=== PATIENT | female | born 1995 | race Caucasian/White ===

== ENCOUNTER 2019-03-01 23:23 | Outpatient (CLI) | payer BC, OTHER ==
[2019-03-02 00:10] LABS: APPEARANCE,URINE SLIGHTLY-CLOUDY; BILIRUBIN,URINE NEGATIVE (NEGATIVE); COLOR,URINE YELLOW; GLUCOSE, URINE NEGATIVE (NEGATIVE); KETONES,URINE NEGATIVE (NEGATIVE); LEUKOCYTE ESTERASE,URINE MODERATE (NEGATIVE); NITRITE,URINE NEGATIVE (NEGATIVE); PROTEIN,URINE NEGATIVE (NEGATIVE); URINE SPECIFIC GRAVITY 1.012; UROBILINOGEN,URINE NEGATIVE mg/dL (<2.0)
[2019-03-02 00:32] LABS: URINE AMPHETAMINES SCREEN NEGATIVE; URINE BARBITURATES SCREEN NEGATIVE; URINE BENZODIAZEPINES SCREEN NEGATIVE; URINE COCAINE SCREEN NEGATIVE; URINE METHADONE SCREEN NEGATIVE; URINE PHENCYCLIDINE SCREEN NEGATIVE
[2019-03-02 00:56] LABS: URINE MARIJUANA (THC) SCREEN NEGATIVE
== END 2019-03-02 00:44 | disposition home or self-care (01) ==
LOC: LC 23:23
PROVIDERS: ATTEND Obstetrics & Gynecology
PROC: 4A1HXCZ Monitoring of Products of Conception, Cardiac Rate, External Approach (ICD-10-PCS; principal; 2019-03-01)
DX: O47.02 False labor before 37 completed weeks of gestation, second trimester (principal); Z3A.24 24 weeks gestation of pregnancy
CPT/HCPCS: 80307; 81001

== ENCOUNTER 2019-04-12 20:36 | Outpatient (CLI) | payer BC ==
[2019-04-12 21:24] LABS: BACTERIA (WET MOUNT) 4+ BACTERIA SEEN; EPITHELIALS (WET MOUNT) 4+ EPITHELIALS SEEN; T.VAGINALIS (WET MOUNT) NO TRICHOMONAS SEEN; WBCS (WET MOUNT) 1+ WBCS SEEN; YEAST (WET MOUNT) NO YEAST SEEN
[2019-04-12 21:28] LABS: APPEARANCE,URINE SLIGHTLY-CLOUDY; BILIRUBIN,URINE NEGATIVE (NEGATIVE); COLOR,URINE YELLOW; GLUCOSE, URINE NEGATIVE (NEGATIVE); KETONES,URINE NEGATIVE (NEGATIVE); LEUKOCYTE ESTERASE,URINE TRACE (NEGATIVE); NITRITE,URINE NEGATIVE (NEGATIVE); PROTEIN,URINE NEGATIVE (NEGATIVE); URINE SPECIFIC GRAVITY 1.009; UROBILINOGEN,URINE NEGATIVE mg/dL (<2.0)
[2019-04-12 21:38] LABS: URINE AMPHETAMINES SCREEN NEGATIVE; URINE BARBITURATES SCREEN NEGATIVE; URINE BENZODIAZEPINES SCREEN NEGATIVE; URINE COCAINE SCREEN NEGATIVE; URINE MARIJUANA (THC) SCREEN NEGATIVE; URINE METHADONE SCREEN NEGATIVE; URINE PHENCYCLIDINE SCREEN NEGATIVE
--- NOTE | 2019-04-12 22:38 | RADIOLOGY REPORT (SQ) ---
EXAM DESCRIPTION: [facility]Lex: US LIMITED CLINICAL HISTORY: 23 years Female; cervical length, presentation, fluid TECHNIQUE: Transabdominal obstetrical ultrasound was performed. COMPARISON: None. FINDINGS: Number of fetuses: Single position: Vertex BPD: 7.47 cm, 30 weeks 0 days HC: 27.58 cm, 30 weeks 1 day AC: 26.77 cm, 30 weeks 6 days FL: 6.26 cm, 32 weeks 3 days EFW: 1720 g, 54% HR: 139 BPM Anatomy: Grossly normal on this limited survey exam Amniotic fluid: KELSEY 13.9 cm, adequate Cervix: 3.9 cm long, closed Placenta: Anterior. No previa. IMPRESSION: 1. Single viable IUP. No acute findings. 2. EGA 30 weeks 6 days, EDC 06/15/2019
[2019-04-12] MEDS ORDERED: CEFTRIAXONE INJ 1000 MG VIAL IM ONE (22:40)
[2019-04-12] MEDS ORDERED: LIDOCAINE 1% INJ-PF (10 MG/ML) 30 ML SDV INFIL ONE (22:40)
[2019-04-12] MEDS ORDERED: CEFTRIAXONE INJ 1000 MG VIAL ONE (22:44)
[2019-04-12] MEDS ORDERED: LIDOCAINE 1% INJ-PF (10 MG/ML) 30 ML SDV ONE (22:44)
[2019-04-12 22:49] LABS: CHLAM PCR NOT DETECTED (NOT DETECT)
== END 2019-04-12 23:04 | disposition home or self-care (01) ==
LOC: LC 20:36
PROVIDERS: ATTEND Student in an Organized Health Care Education/Training Program
PROC: 4A1HXCZ Monitoring of Products of Conception, Cardiac Rate, External Approach (ICD-10-PCS; principal; 2019-04-12)
DX: O23.43 Unspecified infection of urinary tract in pregnancy, third trimester (principal); Z3A.30 30 weeks gestation of pregnancy
CPT/HCPCS: 59899; 94760; 87086; 87210; 81001; 80307; 87491; 87591; 76815; J3490; J0696

== ENCOUNTER 2019-05-06 15:53 | Outpatient (CLI) | payer BC ==
[2019-05-06 16:42] LABS: AMORPHOUS SEDIMENT,URINE TRACE /HPF; APPEARANCE,URINE CLOUDY; BILIRUBIN,URINE NEGATIVE (NEGATIVE); COLOR,URINE YELLOW; GLUCOSE, URINE NEGATIVE (NEGATIVE); KETONES,URINE NEGATIVE (NEGATIVE); LEUKOCYTE ESTERASE,URINE TRACE (NEGATIVE); NITRITE,URINE NEGATIVE (NEGATIVE); PROTEIN,URINE NEGATIVE (NEGATIVE); URINE SPECIFIC GRAVITY 1.012
[2019-05-06 16:44] LABS: BACTERIA (WET MOUNT) 4+ BACTERIA SEEN; EPITHELIALS (WET MOUNT) 4+ EPITHELIALS SEEN; RBCS (WET MOUNT) NO RBCS SEEN; T.VAGINALIS (WET MOUNT) NO TRICHOMONAS SEEN; WBCS (WET MOUNT) 3+ WBCS SEEN; YEAST (WET MOUNT) NO YEAST SEEN
[2019-05-06] MEDS ORDERED: ACETAMINOPHEN 325 MG TABLET PO PRN (17:13)
[2019-05-06 17:18] LABS: URINE AMPHETAMINES SCREEN NEGATIVE; URINE BARBITURATES SCREEN NEGATIVE; URINE BENZODIAZEPINES SCREEN NEGATIVE; URINE COCAINE SCREEN NEGATIVE; URINE MARIJUANA (THC) SCREEN NEGATIVE; URINE METHADONE SCREEN NEGATIVE; URINE PHENCYCLIDINE SCREEN NEGATIVE
[2019-05-06] MEDS ORDERED: RINGERS SOLUTION,LACTATED 1,000 ML IV ONE (17:24)
[2019-05-06] MEDS ORDERED: ONDANSETRON HCL INJ/PF 4 MG/2 ML SDV IV PRN (17:25)
--- NOTE | 2019-05-06 18:00 | Non Stress Test Report ---
Non Stress Test Datetime Report Generated by CPN: 05/06/2019 17:59 DEMOGRAPHIC EGA NST: 34.1 INDICATION Indication for Study (NST) Other: Labor Check VITAL SIGNS Temperature - NST: 97.9 Pulse - NST: 75 RESP - NST: 15 NBPSYS NST: 128 NBPDIA NST: 71 MONITORING Monitor Explained: Monitor Explained; Test Explained; Patient Verbalized Understanding Time on Monitor: 05/06/2019 16:30 Time off Monitor: 05/06/2019 17:10 NST Duration: 40 NST INTERVENTIONS NST Interventions: PO Hydration Physician Notified NST: A Michaels CNM BABY A: [id number] BABY A Movement : Present Contraction Frequency : rare FHR Baseline : 130 Accelerations : 15X15 Decelerations : None Variability : Moderate 6-25bpm NST Review: Meets Criteria for Reactive NST NST Review and Verified By : BL ROULUND, RN NST Results: Reactive NST COMMENTS NST Comments: CNM on unit reviewing FHT strip NST REPORT Report Trigger: Send Report
[2019-05-06 18:08] LABS: CHLAM PCR NOT DETECTED (NOT DETECT)
--- NOTE | 2019-05-06 19:38 | RADIOLOGY REPORT (SQ) ---
EXAM DESCRIPTION: U/S ABDOMEN LIMITED W/O DOP COMPLETED DATE/TIME: 05/06/2019 7:20 pm REASON FOR STUDY: RUQ abd pain, evaluate gall bladder COMPARISON: None. TECHNIQUE: Dynamic and static grayscale images acquired of the abdomen and recorded on PACS. Additio nal selected color Doppler and spectral images recorded. LIMITATIONS: Bowel gas. FINDINGS: PANCREAS: Obscured by bowel gas. LIVER: No masses. Echotexture normal. LIVER VASCULATURE: Normal directional flow of the main portal vein and hepatic veins. GALLBLADDER: Multiple small gallstones. Normal wall thickness, 2.5. No pericholecystic fluid. ULTRASOUND-DETECTED REYNOLDS'S SIGN: Negative. INTRAHEPATIC DUCTS AND COMMON DUCT: CBD and intrahepatic ducts normal caliber. No filling defects. INFERIOR VENA CAVA: Obscured by bowel gas. AORTA: Obscured by bowel gas. RIGHT KIDNEY: Normal size. Normal echogenicity. No solid or suspicious masses. No hydronephros is. No calcifications. PERITONEAL AND RIGHT PLEURAL SPACE: No ascites or effusions. OTHER: heart rate 137 beats per minute. IMPRESSION: Multiple small gallstones. Normal wall thickness, 2.5. No pericholecystic fluid. TECHNICAL DOCUMENTATION: JOB ID: [id number] [place]-72 2010 [employer]- All Rights Reserved Reading location - IP/workstation name: [employer]
[2019-05-06 20:14] LABS: ABSOLUTE EOSINOPHILS # (AUTO) 0.1 10^3/uL (0.0-0.6); ABSOLUTE LYMPHOCYTES (AUTO) 1.4 10^3/uL (0.5-4.7); ABSOLUTE MONOCYTES (AUTO) 0.6 10^3/uL (0.1-1.4); ABSOLUTE NEUT (AUTO) 8.7 10^3/uL (1.7-8.2); BASOPHILS % (AUTO) 0.4 % (0-2); EOSINOPHILS % (AUTO) 0.6 % (0-6); HEMATOCRIT 37.9 % (36.0-47.0); HEMOGLOBIN 13.2 g/dL (12.0-15.5); LYMPHOCYTES % (AUTO) 13.2 % (13-45); MEAN CORPUSCULAR HEMOGLOBIN 31.6 pg (27.0-33.4); MEAN CORPUSCULAR HGB CONC 34.8 g/dL (32.0-36.0); MEAN CORPUSCULAR VOLUME 91 fl (80-97); MONOCYTES % (AUTO) 5.9 % (3-13); PLATELET COUNT 359 10^3/uL (150-450); RED BLOOD COUNT 4.17 10^6/uL (3.72-5.28); RED CELL DISTRIBUTION WIDTH 12.8 % (11.5-14.0); SEGMENTED NEUTROPHILS % (AUTO) 79.9 % (42-78); TOTAL CELLS COUNTED % (AUTO) 100 %; WHITE BLOOD COUNT 10.9 10^3/uL (4.0-10.5)
[2019-05-06 20:35] LABS: ALBUMIN 3.6 g/dL (3.5-5.0); ALKALINE PHOSPHATASE 191 U/L (38-126); ANION GAP 9 (5-19); ASPARTATE AMINO TRANSFERASE 117 U/L (14-36); BILIRUBIN,DIRECT 0.7 mg/dL (0.0-0.4); BILIRUBIN,TOTAL 1.5 mg/dL (0.2-1.3); BLOOD UREA NITROGEN 5 mg/dL (7-20); CALCIUM 9.7 mg/dL (8.4-10.2); CARBON DIOXIDE 24 mmol/L (22-30); CHLORIDE 103 mmol/L (98-107); GLUCOSE 112 mg/dL (75-110); POTASSIUM 4.3 mmol/L (3.6-5.0)
[2019-05-06 20:40] LABS: AMYLASE 1237 U/L (30-110)
== END 2019-05-06 20:39 | disposition home or self-care (01) ==
LOC: LC 15:53
PROVIDERS: ATTEND Obstetrics & Gynecology
PROC: 4A1HXCZ Monitoring of Products of Conception, Cardiac Rate, External Approach (ICD-10-PCS; principal; 2019-05-06)
DX: R10.9 Unspecified abdominal pain (principal); R10.11 Right upper quadrant pain; O26.893 Other specified pregnancy related conditions, third trimester; M54.9 Dorsalgia, unspecified; R35.0 Frequency of micturition; O21.9 Vomiting of pregnancy, unspecified; Z3A.34 34 weeks gestation of pregnancy
CPT/HCPCS: 36415; 59025; 76705; 80053; 80307; 81001; 82150; 83690; 84112; 85025; 87086; 87210; 87491; 87591

== ENCOUNTER 2019-05-11 21:48 | Emergency (ER) | payer BC ==
[2019-05-11] MEDS ORDERED: PROMETHAZINE HCL 25 MG TABLET PO ONE (22:16)
--- NOTE | 2019-05-11 22:19 | ER Document Report ---
ED Medical Screen (RME) - General Stated Complaint: ABDOMINAL PAINS Time Seen by Provider: 05/11/19 22:14 Primary Care Provider: DOLORES WELSH MD [Primary Care Provider] - Follow up as needed Mode of Arrival: Ambulatory Information source: Patient Notes: This 23-year-old female approximately 35 weeks due May 20 first presents emergency department with right upper quad abdominal pain of vomiting. Reports she is been diagnosed with gallstones last week. She has an appointment with the surgeon in May. She reports she started having some nausea vomiting at around 1500 today. Also complains of mid back pain. [place] pain with void. Reports more vaginal discharge the normal. Right upper quad tender to palpate I have greeted and performed a rapid initial assessment of this patient. A comprehensive ED assessment and evaluation of the patient, analysis of test results and completion of the medical decision making process will be conducted by additional ED providers. Dictation of this chart was performed using voice recognition software; therefore, there may be some unintended grammatical errors. TRAVEL OUTSIDE OF THE [place] IN LAST 30 DAYS: No - Related Data Allergies/Adverse Reactions: No Known Allergies Allergy (Verified 05/06/19 16:44) Physical Exam - Vital signs Vitals: Temp Pulse Resp BP Pulse Ox 97.4 F 70 18 146/86 H 99 05/11/19 21:53 05/11/19 21:53 05/11/19 21:53 05/11/19 21:53 05/11/19 21:53 Course - Vital Signs Vital signs: Temp Pulse Resp BP Pulse Ox 97.4 F 70 18 146/86 H 99 05/11/19 21:53 05/11/19 21:53 05/11/19 21:53 05/11/19 21:53 05/11/19 21:53 Doctor's Discharge - Discharge Referrals: DOLORES WELSH MD [Primary Care Provider] - Follow up as needed
[2019-05-11] MEDS ORDERED: MORPHINE SULFATE 10 MG/ML INJ IV ONE (22:47)
[2019-05-11] MEDS ORDERED: NORMAL SALINE 1000 ML 1,000 ML IV ONE (22:47)
[2019-05-11] MEDS ORDERED: METOCLOPRAMIDE HCL INJ/PF 10 MG/2 ML SDV IV ONE (22:47)
--- NOTE | 2019-05-11 22:50 | ER Document Report ---
ED GI/ - General Chief Complaint: Abdominal Pain Stated Complaint: ABDOMINAL PAINS Time Seen by Provider: 05/11/19 22:14 Mode of Arrival: Ambulatory Notes: Patient is a 23-year-old female, G2,P1 at 35 weeks gestation, that comes emergency department for chief complaint of sharp pain in the right upper quadrant and 2 episodes of vomiting today. She was told that she has gallstones via ultrasound about a week ago. Pain does radiate around the top of the abdomen and towards the back. She denies vaginal bleeding, she states she is still feeling baby moving. No other complaints at this time. TRAVEL OUTSIDE OF THE [place] IN LAST 30 DAYS: No - Related Data Allergies/Adverse Reactions: No Known Allergies Allergy (Verified 05/06/19 16:44) Home Medications: . tums Past Medical History - General Information source: Patient - Social History Smoking Status: Never Smoker Frequency of alcohol use: None Drug Abuse: None Lives with: Family Family History: Reviewed & Not Pertinent Patient has suicidal ideation: No Patient has homicidal ideation: No Surgical Hx: Negative - Immunizations Immunizations up to date: Yes Hx Diphtheria, Pertussis, Tetanus Vaccination: Yes Review of Systems - Review of Systems Constitutional: No symptoms reported EENT: No symptoms reported Cardiovascular: No symptoms reported Respiratory: No symptoms reported Gastrointestinal: See HPI Genitourinary: No symptoms reported Female Genitourinary: No symptoms reported Musculoskeletal: No symptoms reported Skin: No symptoms reported Hematologic/Lymphatic: No symptoms reported Neurological/Psychological: No symptoms reported Physical Exam - Vital signs Vitals: Temp Pulse Resp BP Pulse Ox 97.4 F 70 18 146/86 H 99 05/11/19 21:53 05/11/19 21:53 05/11/19 21:53 05/11/19 21:53 05/11/19 21:53 - Notes Notes: GENERAL: Alert, interacts well. No acute distress. HEAD: Normocephalic, atraumatic. EYES: Pupils equal, round, and reactive to light. Extraocular movements intact. ENT: Oral mucosa moist, tongue midline. Oropharynx unremarkable. Airway patent. NECK: Full range of motion. Supple. Trachea midline. LUNGS: Clear to auscultation bilaterally, no wheezes, rales, or rhonchi. No respiratory distress. HEART: Regular rate and rhythm. No murmur ABDOMEN: Right upper quadrant tender with some wincing, remaining abdomen is completely benign. Gravid abdomen. EXTREMITIES: Moves all 4 extremities spontaneously. No edema, normal radial and dorsalis pedis pulses bilaterally. No cyanosis. BACK: no cervical, thoracic, lumbar midline tenderness. No saddle anesthesia, normal distal neurovascular exam. Moves all extremities in full range of motion. NEUROLOGICAL: Alert and oriented x3. Normal speech. Cranial nerves II through XII grossly intact. PSYCH: Normal affect, normal mood. SKIN: Warm, dry, normal turgor. No rashes or lesions noted. Course - Re-evaluation Re-evalutation: On reevaluation patient no longer has any pain, she has not had return of symptoms, she is able to tolerate p.o. without difficulty. CBC shows mild leukocytosis, chemistry nonspecific, lipase unremarkable, bilirubin is not significantly elevated. Ultrasound shows cholelithiasis without pericholecystic fluid or obstruction. No acute findings. Patient with no symptoms in regards to the , feeling the baby move, has good heart tones, has no bleeding or lower abdominal pain/cramping. I discussed options with patient, I did discuss talking with surgery, patient declined, patient states she already has a follow-up with the surgical clinic scheduled and she will follow-up with that using precautions. She states she return if she worsens, this was discussed in detail. Patient and family state appreciation and agreement. Stable at time of discharge. - Vital Signs Vital signs: Temp Pulse Resp BP Pulse Ox 97.7 F 69 14 116/74 100 05/12/19 01:13 05/12/19 01:13 05/12/19 01:13 05/12/19 01:13 05/12/19 01:13 - Laboratory Result Diagrams: 05/11/19 23:15 05/11/19 23:15 Laboratory results interpreted by me: 05/11/19 05/11/19 05/11/19 23:15 23:15 23:15 WBC 12.2 H Absolute Neuts (auto) 9.2 H BUN 4 L Calcium 10.7 H Direct Bilirubin 0.5 H AST 84 H Alkaline Phosphatase 217 H Urine Urobilinogen 2.0 H Ur Leukocyte Esterase TRACE H Discharge - Discharge Clinical Impression: Right upper quadrant pain Vomiting Qualifiers: Vomiting type: unspecified Vomiting Intractability: non-intractable Nausea presence: with nausea Qualified Code(s): R11.2 - Nausea with vomiting, unspecified Cholelithiasis Qualifiers: Cholelithiasis location: gallbladder Cholecystitis presence: without cholecystitis Biliary obstruction: without biliary obstruction Qualified Code(s): K80.20 - Calculus of gallbladder without cholecystitis without obstruction Condition: Stable Disposition: HOME, SELF-CARE Additional Instructions: There is no sign of obstruction or infection at this time. Continue your restriction diet, take medication as prescribed if needed, follow-up with your surgical clinic appointment. Follow-up with [facility]. Return for any concerning symptoms including returned or worsening pain, fever, uncontrolled vomiting, or any other concerning symptoms. Prescriptions: Metoclopramide HCl [Reglan] 5 mg PO ASDIR PRN #30 tablet PRN Reason:
[2019-05-11 23:29] LABS: ABSOLUTE EOSINOPHILS # (AUTO) 0.1 10^3/uL (0.0-0.6); ABSOLUTE LYMPHOCYTES (AUTO) 1.7 10^3/uL (0.5-4.7); ABSOLUTE MONOCYTES (AUTO) 1.2 10^3/uL (0.1-1.4); ABSOLUTE NEUT (AUTO) 9.2 10^3/uL (1.7-8.2); BASOPHILS % (AUTO) 0.2 % (0-2); EOSINOPHILS % (AUTO) 0.7 % (0-6); HEMATOCRIT 39.3 % (36.0-47.0); HEMOGLOBIN 13.4 g/dL (12.0-15.5); LYMPHOCYTES % (AUTO) 14.3 % (13-45); MEAN CORPUSCULAR HGB CONC 34.2 g/dL (32.0-36.0); MEAN CORPUSCULAR VOLUME 91 fl (80-97); MONOCYTES % (AUTO) 9.4 % (3-13); PLATELET COUNT 372 10^3/uL (150-450); RED BLOOD COUNT 4.33 10^6/uL (3.72-5.28); RED CELL DISTRIBUTION WIDTH 12.8 % (11.5-14.0); SEGMENTED NEUTROPHILS % (AUTO) 75.4 % (42-78); TOTAL CELLS COUNTED % (AUTO) 100 %; WHITE BLOOD COUNT 12.2 10^3/uL (4.0-10.5)
[2019-05-11 23:43] LABS: APPEARANCE,URINE CLOUDY; BILIRUBIN,URINE NEGATIVE (NEGATIVE); COLOR,URINE YELLOW; GLUCOSE, URINE NEGATIVE (NEGATIVE); KETONES,URINE NEGATIVE (NEGATIVE); LEUKOCYTE ESTERASE,URINE TRACE (NEGATIVE); NITRITE,URINE NEGATIVE (NEGATIVE); PROTEIN,URINE NEGATIVE (NEGATIVE); URINE SPECIFIC GRAVITY 1.013
[2019-05-11 23:49] LABS: BLOOD UREA NITROGEN 4 mg/dL (7-20); CALCIUM 10.7 mg/dL (8.4-10.2); CARBON DIOXIDE 27 mmol/L (22-30); CHLORIDE 101 mmol/L (98-107); GLUCOSE 95 mg/dL (75-110); POTASSIUM 3.8 mmol/L (3.6-5.0)
[2019-05-11 23:50] LABS: ALBUMIN 3.8 g/dL (3.5-5.0); ALKALINE PHOSPHATASE 217 U/L (38-126); ANION GAP 9 (5-19); ASPARTATE AMINO TRANSFERASE 84 U/L (14-36); BILIRUBIN,DIRECT 0.5 mg/dL (0.0-0.4); BILIRUBIN,TOTAL 1.1 mg/dL (0.2-1.3); TOTAL PROTEIN 7.4 g/dL (6.3-8.2)
--- NOTE | 2019-05-12 00:30 | RADIOLOGY REPORT (SQ) ---
EXAM DESCRIPTION: US ABDOMEN LIMITED COMPLETED DATE/TME: 05/11/2019 22:47 CLINICAL HISTORY: 23 years Female, RUQ pain, vomiting Comparison: None. LIMITATIONS: None. FINDINGS: Cholelithiasis, 0.3 cm gallbladder wall thickening, negative sonographic Flores's test, mild hepatic steatosis, a 0.4-cm diameter common bile duct, no intrahepatic ductal dilation, hepatopetal patent flow of the portal vein, 12.2-cm right kidney, partially obscured pancreas, visualized vasculature/abdominal aorta, and no significant ascites appear otherwise unremarkable. IMPRESSION: No acute findings. Cholelithiasis. Mild hepatic steatosis.
[2019-05-12] MEDS ORDERED: HYDROCODONE/ACETAMINOPHEN 5-325 MG (6 TAB/ER DISP) PO PRN (00:49)
[2019-05-12 01:15] VITALS: BP 116/74
== END 2019-05-12 01:15 | disposition home or self-care (01) ==
LOC: ER 21:48
DX: O99.613 Diseases of the digestive system complicating pregnancy, third trimester (principal); R10.11 Right upper quadrant pain; R11.10 Vomiting, unspecified; Z3A.35 35 weeks gestation of pregnancy
CPT/HCPCS: 36415; 83690; 85025; 80053; 81001; 76705; J2765; J2270; J7030; 96361; 96374; 96375; 99284

== ENCOUNTER → 2019-06-12 | Outpatient (CLI) | payer BC | LOC: LAB 17:20 | PROVIDERS: ATTEND Midwife | DX: L29.9 Pruritus, unspecified (principal) | CPT/HCPCS: 36415; 82239 ==

== ENCOUNTER 2019-06-18 06:15 | Outpatient (CLI) | payer BC ==
[2019-06-18 06:43] LABS: APPEARANCE,URINE CLOUDY; BILIRUBIN,URINE SMALL (NEGATIVE); COLOR,URINE AMBER; GLUCOSE, URINE NEGATIVE (NEGATIVE); KETONES,URINE NEGATIVE (NEGATIVE); LEUKOCYTE ESTERASE,URINE TRACE (NEGATIVE); NITRITE,URINE NEGATIVE (NEGATIVE); PROTEIN,URINE 100 mg/dL (NEGATIVE); URINE SPECIFIC GRAVITY 1.028
[2019-06-18] MEDS ORDERED: MAG HYDROX/AL HYDROX/SIMETH SUSP 30 ML UDCUP ONE (07:56)
[2019-06-18] MEDS ORDERED: RINGERS SOLUTION,LACTATED 1,000 ML IV ONE (08:05)
[2019-06-18 08:12] LABS: URINE AMPHETAMINES SCREEN NEGATIVE; URINE BARBITURATES SCREEN NEGATIVE; URINE BENZODIAZEPINES SCREEN NEGATIVE; URINE COCAINE SCREEN NEGATIVE; URINE MARIJUANA (THC) SCREEN NEGATIVE; URINE METHADONE SCREEN NEGATIVE; URINE PHENCYCLIDINE SCREEN NEGATIVE
--- NOTE | 2019-06-18 10:27 | Non Stress Test Report ---
Non Stress Test Datetime Report Generated by CPN: 06/18/2019 10:27 DEMOGRAPHIC EGA NST: 40.2 INDICATION Indication for Study (NST) Other: LC- not in labor VITAL SIGNS Temperature - NST: 97.5 Pulse - NST: 69 RESP - NST: 16 NBPSYS NST: 131 NBPDIA NST: 81 MONITORING Monitor Explained: Monitor Explained; Test Explained; Patient Verbalized Understanding Time on Monitor: 06/18/2019 09:46 Time off Monitor: 06/18/2019 10:10 NST Duration: 24 NST INTERVENTIONS NST Interventions: PO Hydration; IV Fluids Physician Notified NST: Dr Bolton BABY A: [id number] BABY A Movement : Present Contraction Frequency : none FHR Baseline : 120 Accelerations : 15X15 Decelerations : None Variability : Moderate 6-25bpm NST Review: Meets Criteria for Reactive NST NST Review and Verified By : Neeru Ziegler, RN NST Results: Reactive NST COMMENTS NST Comments: MD on unit reviewing FHT strip NST REPORT Report Trigger: Send Report
== END 2019-06-18 10:17 | disposition home or self-care (01) ==
LOC: LC 06:15
PROVIDERS: ATTEND Student in an Organized Health Care Education/Training Program
PROC: 4A1HXCZ Monitoring of Products of Conception, Cardiac Rate, External Approach (ICD-10-PCS; principal; 2019-06-18)
DX: O48.0 Post-term pregnancy (principal); O47.1 False labor at or after 37 completed weeks of gestation; Z3A.40 40 weeks gestation of pregnancy
CPT/HCPCS: 59025; 80307; 81005; 84112

== ENCOUNTER 2019-06-24 02:59 | Inpatient (IN) | payer BC ==
[2019-06-24 03:49] LABS: ABSOLUTE BASOPHILS # (AUTO) 0.1 10^3/uL (0.0-0.2); ABSOLUTE EOSINOPHILS # (AUTO) 0.1 10^3/uL (0.0-0.6); ABSOLUTE LYMPHOCYTES (AUTO) 2.3 10^3/uL (0.5-4.7); ABSOLUTE MONOCYTES (AUTO) 0.8 10^3/uL (0.1-1.4); ABSOLUTE NEUT (AUTO) 7.4 10^3/uL (1.7-8.2); BASOPHILS % (AUTO) 0.6 % (0-2); EOSINOPHILS % (AUTO) 1.3 % (0-6); HEMATOCRIT 38.6 % (36.0-47.0); HEMOGLOBIN 13.4 g/dL (12.0-15.5); LYMPHOCYTES % (AUTO) 21.4 % (13-45); MEAN CORPUSCULAR HEMOGLOBIN 30.9 pg (27.0-33.4); MEAN CORPUSCULAR HGB CONC 34.8 g/dL (32.0-36.0); MEAN CORPUSCULAR VOLUME 89 fl (80-97); MONOCYTES % (AUTO) 7.1 % (3-13); PLATELET COUNT 364 10^3/uL (150-450); RED BLOOD COUNT 4.35 10^6/uL (3.72-5.28); RED CELL DISTRIBUTION WIDTH 13.4 % (11.5-14.0); SEGMENTED NEUTROPHILS % (AUTO) 69.6 % (42-78); TOTAL CELLS COUNTED % (AUTO) 100 %; WHITE BLOOD COUNT 10.7 10^3/uL (4.0-10.5)
[2019-06-24 04:14] LABS: APPEARANCE,URINE SLIGHTLY-CLOUDY; BILIRUBIN,URINE NEGATIVE (NEGATIVE); COLOR,URINE YELLOW; GLUCOSE, URINE NEGATIVE (NEGATIVE); KETONES,URINE NEGATIVE (NEGATIVE); LEUKOCYTE ESTERASE,URINE SMALL (NEGATIVE); NITRITE,URINE NEGATIVE (NEGATIVE); PROTEIN,URINE NEGATIVE (NEGATIVE); URINE SPECIFIC GRAVITY 1.012; UROBILINOGEN,URINE NEGATIVE mg/dL (<2.0)
[2019-06-24] MEDS ORDERED: RINGERS SOLUTION,LACTATED 300 ML IV ONE (04:20)
[2019-06-24] MEDS ORDERED: OXYTOCIN/NORMAL SALINE 20 UNIT/1,000 ML RTUINJ IV PRN ×2 (04:20→16:14)
[2019-06-24] MEDS ORDERED: DINOPROSTONE 10 MG VAGINAL INSERT.SR PV PRN (04:20)
[2019-06-24] MEDS ORDERED: MISOPROSTOL 0.2 MG TABLET ONE (04:26)
[2019-06-24] MEDS ORDERED: OXYTOCIN 10 UNIT/ML VIAL ONE (04:26)
[2019-06-24] MEDS ORDERED: LIDOCAINE 1% INJ-PF (10 MG/ML) 30 ML SDV ONE (04:26)
[2019-06-24] MEDS ORDERED: OXYTOCIN/NORMAL SALINE 20 UNIT/1,000 ML RTUINJ ONE (04:26)
[2019-06-24 04:29] LABS: URINE AMPHETAMINES SCREEN NEGATIVE; URINE BARBITURATES SCREEN NEGATIVE; URINE BENZODIAZEPINES SCREEN NEGATIVE; URINE COCAINE SCREEN NEGATIVE; URINE MARIJUANA (THC) SCREEN NEGATIVE; URINE METHADONE SCREEN NEGATIVE; URINE PHENCYCLIDINE SCREEN NEGATIVE
[2019-06-24] MEDS: RINGERS SOLUTION,LACTATED 1,000 ML IV PRN ×5 (06:04→14:56)
--- NOTE | 2019-06-24 09:14 | Admission Physical ---
Datetime Report Generated by [facility]: 06/24/2019 09:14 CURRENT ADMISSION Hx Assessment: The History has been Reviewed and is Current Chief Complaint: Scheduled Induction of Labor (Annotations: Data stored by [facility] on behalf of user) Indication for Induction: Post Dates Admit Impression : Term, Intrauterine Admit Plan: Admit to Unit; Initiate Labor Protocol; Initiate Labor Induction Protocol ALLERGIES Medication Allergies: No Medication Allergies: No Known Allergies (05/06/2019) Latex: No Latex Allergies Food Allergies: None Environmental Allergies: None OBSTETRICAL HISTORY EDC: 06/16/2019 00:00 : 2 Para: 1 Term: 1 : 0 SAB: 0 IAB: 0 Livin Gestational Diabetes: No Rh Sensitization: No Incompetent Cervix: No LIBERTY: No Infertility: No ART Treatment: No Uterine Anomaly: No IUGR: No Hx Previous C/S: No Macrosomia: No Hx Loss/Stillborn: No PIH: No Hx : No Placenta Previa/Abruption: No Depression/PP Depression: Yes PTL/PROM: Yes Post Hemorrhage: No Current Procedures: Ultrasound Obstetrical History Comments: G1- 2010, , depression, PTL, 41.3 weeks G2- Current SEE RECORDS Alcohol: No Marijuana : No Cocaine: No Other Illicit Drugs: No Cigarettes: Never Smoker. 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: No Heart Disease: No Hosp/Surgery: No Autoimmune Disorder: No Anesthetic Complications: No Kidney Disease: Yes Abnormal Pap Smear: No Neuro/Epilepsy: No Psychiatric Disorders: No Other Medical Diseases: No Hepatitis/Liver Disease: No Significant Family History: No Varicosities/Phlebitis: No Trauma/Violence : No Thyroid Dysfunction: No Medical History Comments: Childbirth, Axillary nipple removed, kidney disease- sponge kidney INFECTIOUS HISTORY Gonorrhea: No Genital Herpes: No Chlamydia: Yes Tuberculosis: No Syphilis: No Hepatitis: No HIV/AIDS Exposure: No Rash or Viral Illness: No HPV: No Infectious History Comments: chlamydia PHYSICAL EXAM General: Normal Neurologic: Normal Thyroid: Deferred Heart: Normal Lungs: Normal Breast: Normal Back: Normal Abdomen: Normal Genitourinary Exam: Normal Extremities: Normal DTRs: Normal Pelvic Type: Adequate Physical Exam Comments: pelvis proven to 7lbs 2oz Vital Signs: Reviewed; Within Normal Limits FETUS A EGA: 41.1 Monitoring: External US Variability: Moderate 6-25bpm Decelerations: None FHR Category: Category I Presentation: Vertex Admit Comment: 23yo @ 41w1d into L_D for IOL secondary to post term . Pt is O pos, GBS neg and RI. Pt was a transferred in @ 21w from [place] with significant hx of chlamydia in 2010, PPD, kidney disease (sponge kidney) and positive gallstones with elevated amylase,lypase and AST at 34w with this with pending scheduled f/u with general surgery on 06/30. Plan is to start pitocin induction per protocol. Report received from Dr. Carbajal, Dr. Mathews is the OB internet consultant today and aware of poc. PLANS FOR LABOR AND DELIVERY Labor and Delivery: None Feeding Preference: Formula Circumcision: N/A INFORMED CONSENT Assignment: Anisha Mathews MD Signature: with User ID: Shelli : with User ID: Shelli
[2019-06-24] MEDS ORDERED: FENTANYL CITRATE INJ/PF 100 MCG/2 ML AMPUL ONE (10:37)
[2019-06-24] MEDS ORDERED: PHENYLEPHRINE HCL INJ/PF 10 MG/1 ML SDV ONE (10:37)
[2019-06-24] MEDS ORDERED: EPHEDRINE SULFATE INJ 50 MG/1 ML AMPULE ONE (10:37)
[2019-06-24] MEDS ORDERED: FENTANYL/BUPIVACAINE/NS/PF 300 MCG/150 ML RTUINJ EPI ONE (10:37)
[2019-06-24] MEDS ORDERED: BUPIVACAINE HCL 0.25 % INJ/PF (2.5 MG/1 ML) 30 ML VIAL ONE (10:38)
--- NOTE | 2019-06-24 12:05 | Warning Signs in Babies ---
VOD Warning Signs Datetime Report Generated by [facility]: 06/24/2019 12:05 VOD#[id number] -Warning Signs in Babies: Viewed with Parent(s)/Family (06/24/2019 12:04:Owen Bravo RN)
[2019-06-24] MEDS ORDERED: MAGNESIUM HYDROXIDE SUSP 30 ML UDCUP PO PRN (16:14)
[2019-06-24] MEDS ORDERED: BENZOCAINE/MENTHOL AEROSOL SPRAY 56 ML TOP PRN (16:14)
[2019-06-24] MEDS ORDERED: PROMETHAZINE HCL 25 MG TABLET PO PRN (16:14)
[2019-06-24] MEDS ORDERED: NA PHOS,M-B/NA PHOS,DI-BA (ADULT) 133 ML ENEMA PR PRN (16:14)
[2019-06-24] MEDS ORDERED: DIPH/PERTUSS(ACELL)/TETANUS VAC/PF 0.5 ML SYR (>=10YO) IM PRN (16:14)
[2019-06-24] MEDS ORDERED: DIPHENHYDRAMINE HCL 25 MG CAPSULE PO PRN (16:14)
[2019-06-24] MEDS ORDERED: MEASLES,MUMPS&RUBELLA VACC/PF 0.5 ML VIAL SUBCUT PRN (16:14)
[2019-06-24] MEDS ORDERED: GLYCERIN/WITCH HAZEL LEAF 1 EACH MED..WIPE TP PRN (16:14)
[2019-06-24] MEDS ORDERED: PSEUDOEPHEDRINE HCL 30 MG TABLET PO PRN (16:14)
[2019-06-24] MEDS ORDERED: DIBUCAINE 1% OINTMENT 28 GM TP PRN (16:14)
[2019-06-24] MEDS ORDERED: PROMETHAZINE HCL 25 MG SUPP.RECT PR PRN (16:14)
[2019-06-24] MEDS ORDERED: ACETAMINOPHEN 325 MG TABLET PO PRN (16:14)
[2019-06-24] MEDS ORDERED: PROMETHAZINE HCL INJ 25 MG/1 ML VIAL IV PRN (16:14)
[2019-06-24] MEDS ORDERED: IBUPROFEN 800 MG TABLET ONE (18:11)
[2019-06-24] MEDS ORDERED: DOCUSATE SODIUM 100 MG CAPSULE ONE (18:11)
[2019-06-24] MEDS ORDERED: FERROUS SULFATE 325 MG TABLET PO ONE (18:12)
[2019-06-24] MEDS: IBUPROFEN 800 MG TABLET PO SCH (18:13)
[2019-06-24] MEDS: FERROUS SULFATE 325 MG TABLET PO SCH (18:13)
[2019-06-24] MEDS: DOCUSATE SODIUM 100 MG CAPSULE PO SCH (18:13)
--- NOTE | 2019-06-24 18:29 | Delivery Summary ---
Del Sum A-C Datetime Report Generated by CPN: 06/24/2019 18:29 DELIVERY PERSONNEL DELIVERY PERSONNEL: [id number] Delivery Doctor:: Yolanda Tolentino CNM Labor and Delivery Nurse:: Owen Bravo RNag service manager Nurse:: Gloria Diaz RN Nursery Nurse:: SANDOVAL HERRERA Tech/SULFURIC ACID PLANT OPERATOR: Sydney Franco, CONSUMER INSIGHT MANAGER Additional Personnel: : Yasmine Dumont RN MATERNAL INFORMATION Delivery Anesthesia: Epidural Medications During Delivery: Pitocin Medications After Delivery: Pitocin Bolus-Please Comment; Pitocin Drip 20 Units/1000ml NSS Delivery QBL: 125 Maternal Complications: None Provider Comments: pt progressed to c/c/2 with urge to push, started pushing and quickly delivered a viable baby girl with compound arm and thru loose nuchal cord x1. Baby with vigorous respiratory effort and cry spontaneously at . Unable to place on maternal abdomen due to short cord. Cord allowed to stop pulsating then clamped x2 and cut by FOB (3vc noted). Baby to NICU nurses for diaper placement prior to skin to skin with father per pt's request. Placenta delivered spontaneously intact. Fundus firm @ u-1, small bleeding. Vaginal and perineal inspection revealed abrasion as stated. Mother and baby remain in room and stable. Large amount of meconium with delivery. LABOR SUMMARY EDC: 06/16/2019 00:00 No. Babies in Womb: 1 Attempted: No Labor Anesthesia: Epidural LABOR INFORMATION Reason for Induction: Post Dates Onset of Labor: 06/24/2019 13:25 Complete Dilatation: 06/24/2019 15:51 Oxytocin: Induction Group B Beta Strep: Negative Antibiotics # of Doses: 0 Steroids Given: None Reason Steroids Not Administered: Not Applicable MEMBRANES Membranes Rupture Method: Artificial Rupture of Membranes: 06/24/2019 12:55 Length of Rupture (hr): 3.05 Amniotic Fluid Color: Moderate Meconium Amniotic Fluid Amount: Scant Amniotic Fluid Odor: Normal STAGES OF LABOR Stage 1 hr: 2 Stage 1 min: 26 Stage 2 hr: 0 Stage 2 min: 7 Stage 3 hr: 0 Stage 3 min: 5 Total Time in Labor hr: 2 Total Time in Labor min: 38 VAGINAL DELIVERY Episiotomy: None Laceration #1: None Laceration Extension #1: N/A Other Laceration: left periurethral abrasion Laceration Repair: Not Applicable Laceration Repair Note: hemostatic Sponge Count Correct: N/A CSECTION DELIVERY Primary Indication: N/A Secondary Indication: N/A CSection Incidence: N/A Labor: N/A Elective: N/A CSection Incision: N/A BABY A INFORMATION Delivery Date/Time: 06/24/2019 15:58 Method of Delivery: Vaginal Born in Route : No : Failed Forceps: N/A Vacuum Extraction: N/A Shoulder Dystocia : No PRESENTATION/POSITION BABY A Presentation: Cephalic Cephalic Presentation: Vertex Vertex Position: Right Occipital Anterior Breech Presentation: N/A PLACENTA INFORMATION BABY A Placenta Delivery Time : 06/24/2019 16:03 Placenta Method of Delivery: Spontaneous Placenta Status: Delivered SCORES BABY A Heart Rate 1 min: >100 bpm Resp Effort 1 min: Good Cry Reflex Irritability 1 min: Cough or Sneeze or Pulls Away Muscle Tone 1 min: Active Motion Color 1 min: Body [place], Extremities Blue Resuscitation Effort 1 min: Tactile Stimulation SCORE 1 MIN: 9 Heart Rate 5 min: >100 bpm Resp Effort 5 min: Good Cry Reflex Irritability 5 min: Cough or Sneeze or Pulls Away Muscle Tone 5 min: Active Motion Color 5 min: Body [place], Extremities Blue Resuscitation Effort 5 min: N/A SCORE 5 MIN: 9 INFANT INFORMATION BABY A Gestational Age at Delivery: 41.1 Gestational Status: Late Term- 41- 41.6 Weeks Infant Outcome : Liveborn Infant Condition : Stable Sex: Female IDENTIFICATION BABY A Verification Date/Time: 06/24/2019 16:08 ID Band Number: [id number] Mother's Name Verified: Yes RN Verifying Infant: TMartin,RN Additional Verifying Personnel: [facility], WEIGHT/LENGTH BABY A Infant Birthweight (gm): 3401 Weight (lb): 7 Infant Weight (oz): 8 Infant Length (in): 20.50 Infant Length (cm): 52.07 CORD INFORMATION BABY A No. Cord Vessels: 3 Nuchal Cord : Around Neck x1, Loose Cord Blood Taken: Yes-For Eval (Mom's Blood Type - or O+) Infant Suction: None ASSESSMENT BABY A Complications: Meconium Skin to Skin: Yes Skin to Skin Time (min): 10 BABY B INFORMATION : N/A SIGNATURES Assignment: Anisha Mathews MD Signature: with User ID: Shelli : with User ID: Shelli
[2019-06-24] MEDS: FAMOTIDINE 20 MG TABLET PO SCH (21:40)
[2019-06-25] MEDS: IBUPROFEN 800 MG TABLET PO SCH ×3 (01:03→17:46)
[2019-06-25 07:00] LABS: HEMATOCRIT 35.7 % (36.0-47.0); HEMOGLOBIN 12.1 g/dL (12.0-15.5); MEAN CORPUSCULAR HEMOGLOBIN 30.5 pg (27.0-33.4); MEAN CORPUSCULAR HGB CONC 33.9 g/dL (32.0-36.0); MEAN CORPUSCULAR VOLUME 90 fl (80-97); PLATELET COUNT 315 10^3/uL (150-450); RED BLOOD COUNT 3.97 10^6/uL (3.72-5.28); RED CELL DISTRIBUTION WIDTH 13.2 % (11.5-14.0); WHITE BLOOD COUNT 11.7 10^3/uL (4.0-10.5)
[2019-06-25] MEDS: FERROUS SULFATE 325 MG TABLET PO SCH ×2 (09:42→17:45)
--- NOTE | 2019-06-25 09:42 | PDOC PROGRESS REPORT ---
Subjective-OB Progress Note for:: 06/25/19 Subjective: Doing well, no c/o, bottle feeding, ambulating, eating well, no c/o Physical Exam (OB) Vital Signs: Temp Pulse Resp BP Pulse Ox 98.2 F 77 16 111/70 99 06/25/19 07:44 06/25/19 07:44 06/25/19 07:44 06/25/19 07:44 06/25/19 07:44 Intake & Output 06/24/19 06/25/19 06/26/19 06:59 06:59 06:59 Intake Total 1109 Balance 1109 Weight 110.268 kg - PIH/Pre-Eclampsia DTR's: 1 + Clonus: Negative Headache: Absent Epigastric Pain: No Visual Changes: No - Lochia Lochia Amount: Moderate 25-50 ml Lochia Color: Rubra/Red - Abdomen Description: Soft, Round Fundal Description: Firm, Midline Fundal Height: u/u - u/2 Objective-Diagnostic Laboratory: 06/25/19 06:39 06/25/19 06:39 WBC 11.7 H RBC 3.97 Hgb 12.1 Hct 35.7 L MCV 90 MCH 30.5 MCHC 33.9 RDW 13.2 Plt Count 315 Assessment and Plan(PN) - Assessment and Plan (1) History of depression Is this a current diagnosis for this admission?: Yes (2) Delivery normal Is this a current diagnosis for this admission?: Yes (3) Encounter for induction of labor Is this a current diagnosis for this admission?: Yes (4) Post-dates , delivered, current hospitalization Is this a current diagnosis for this admission?: Yes - Time Spent with Patient Time with patient: Less than 15 minutes Medications reviewed and adjusted accordingly: Yes - Disposition Anticipated Discharge: Home Within: within 24 hours
[2019-06-25] MEDS: FAMOTIDINE 20 MG TABLET PO SCH ×2 (09:44→21:01)
[2019-06-25] MEDS: PRENATAL VITAMIN W DHA CAPSULE PO SCH (09:44)
[2019-06-25] MEDS: SENNOSIDES/DOCUSATE 8.6-50 MG 1 EACH TABLET PO SCH (09:46)
[2019-06-25] MEDS: DOCUSATE SODIUM 100 MG CAPSULE PO SCH ×2 (09:46→17:44)
[2019-06-26] MEDS: IBUPROFEN 800 MG TABLET PO SCH ×2 (01:18→09:16)
[2019-06-26 08:13] VITALS: BP 119/83
[2019-06-26] MEDS: FERROUS SULFATE 325 MG TABLET PO SCH (09:16)
[2019-06-26] MEDS: PRENATAL VITAMIN W DHA CAPSULE PO SCH (09:16)
[2019-06-26] MEDS: DOCUSATE SODIUM 100 MG CAPSULE PO SCH (09:16)
[2019-06-26] MEDS: SENNOSIDES/DOCUSATE 8.6-50 MG 1 EACH TABLET PO SCH (09:16)
[2019-06-26] MEDS: FAMOTIDINE 20 MG TABLET PO SCH (09:33)
--- NOTE | 2019-06-26 11:33 | PDOC PROGRESS REPORT ---
Subjective-OB Progress Note for:: 06/26/19 Subjective: Ready to go home. Physical Exam (OB) Vital Signs: Temp Pulse Resp BP Pulse Ox 97.7 F 79 16 119/83 100 06/26/19 07:51 06/26/19 07:51 06/26/19 07:51 06/26/19 07:51 06/26/19 07:51 Intake & Output 06/25/19 06/26/19 06/27/19 06:59 06:59 06:59 Intake Total 1109 400 Balance 1109 400 - PIH/Pre-Eclampsia DTR's: 1 + Clonus: Negative Headache: Absent Epigastric Pain: No Visual Changes: No - Dressing Removed: No - Lochia Lochia Amount: Scant < 10 ml Lochia Color: Rubra/Red - Abdomen Description: Soft Hernia Present: No Bowel Sounds: Normoactive Flatus Presence: Present Stool: Yes Fundal Description: Firm, Midline Fundal Height: u/u - u/2 Objective-Diagnostic Laboratory: 06/25/19 06:39 Assessment and Plan(PN) - Time Spent with Patient Medications reviewed and adjusted accordingly: Yes - Disposition Anticipated Discharge: Home
--- NOTE | 2019-06-26 11:40 | PDOC DISCHARGE SUMMARY ---
Impression - Admit/DC Date/PCP Admission Date/Primary Care Provider: 06/24/19 02:59 PEDRITO KELELR MD Discharge Date: 06/26/19 - Discharge Diagnosis (1) Delivery normal Is this a current diagnosis for this admission?: Yes (2) Encounter for induction of labor Is this a current diagnosis for this admission?: Yes (3) History of depression Is this a current diagnosis for this admission?: Yes (4) Post-dates , delivered, current hospitalization Is this a current diagnosis for this admission?: Yes - Additional Information Resuscitation Status: Full Code Discharge Diet: Regular Discharge Activity: Activity As Tolerated, Balance Activity w/Rest, Pelvic Rest, Slowly Increase Activity, No tub bath Referrals: PEDRITO KELLER MD [Primary Care Provider] - Home Medications: Vit No.130/Iron/Folic [ Tablet] 1 each PO DAILY 04/12/19 HPI Gestational Age: 41.1 wks Reason(s) for Admission: Induction of Labor Procedures: Ultrasound Intrapartum Procedure(s): Spontaneous Vaginal Delivery Complication(s): Laceration-Periurethral Results Laboratory Results: WBC 11.7 10^3/uL (4.0-10.5) H 06/25/19 06:39 RBC 3.97 10^6/uL (3.72-5.28) 06/25/19 06:39 Hgb 12.1 g/dL (12.0-15.5) 06/25/19 06:39 Hct 35.7 % (36.0-47.0) L 06/25/19 06:39 MCV 90 fl (80-97) 06/25/19 06:39 MCH 30.5 pg (27.0-33.4) 06/25/19 06:39 MCHC 33.9 g/dL (32.0-36.0) 06/25/19 06:39 RDW 13.2 % (11.5-14.0) 06/25/19 06:39 Plt Count 315 10^3/uL (150-450) 06/25/19 06:39 Lymph % (Auto) 21.4 % (13-45) 06/24/19 03:37 H[place] % (Auto) 7.1 % (3-13) 06/24/19 03:37 Eos % (Auto) 1.3 % (0-6) 06/24/19 03:37 Baso % (Auto) 0.6 % (0-2) 06/24/19 03:37 Absolute Neuts (auto) 7.4 10^3/uL (1.7-8.2) 06/24/19 03:37 Absolute Lymphs (auto) 2.3 10^3/uL (0.5-4.7) 06/24/19 03:37 Absolute Monos (auto) 0.8 10^3/uL (0.1-1.4) 06/24/19 03:37 Absolute Eos (auto) 0.1 10^3/uL (0.0-0.6) 06/24/19 03:37 Absolute Basos (auto) 0.1 10^3/uL (0.0-0.2) 06/24/19 03:37 Seg Neutrophils % 69.6 % (42-78) 06/24/19 03:37 Urine Color YELLOW 06/24/19 03:17 Urine Appearance SLIGHTLY-CLOUDY 06/24/19 03:17 Urine pH 7.0 (5.0-9.0) 06/24/19 03:17 Ur Specific [place] 1.012 06/24/19 03:17 Urine Protein NEGATIVE mg/dL (NEGATIVE) 06/24/19 03:17 Urine Glucose (UA) NEGATIVE mg/dL (NEGATIVE) 06/24/19 03:17 Urine Ketones NEGATIVE mg/dL (NEGATIVE) 06/24/19 03:17 Urine Blood NEGATIVE (NEGATIVE) 06/24/19 03:17 Urine Nitrite NEGATIVE (NEGATIVE) 06/24/19 03:17 Urine Bilirubin NEGATIVE (NEGATIVE) 06/24/19 03:17 Urine Urobilinogen NEGATIVE mg/dL (<2.0) 06/24/19 03:17 Ur Leukocyte Esterase SMALL (NEGATIVE) H 06/24/19 03:17 Urine Ascorbic Acid NEGATIVE (NEGATIVE) 06/24/19 03:17 Urine Opiates Screen NEGATIVE 06/24/19 03:17 Urine Methadone Screen NEGATIVE 06/24/19 03:17 Ur Barbiturates Screen NEGATIVE 06/24/19 03:17 Ur Phencyclidine Scrn NEGATIVE 06/24/19 03:17 Ur Amphetamines Screen NEGATIVE 06/24/19 03:17 U Benzodiazepines Scrn NEGATIVE 06/24/19 03:17 Urine Cocaine Screen NEGATIVE 06/24/19 03:17 U Marijuana (THC) Screen NEGATIVE 06/24/19 03:17 RPR NONREACTIVE (NONREACTIVE) 06/24/19 03:37 Blood Type O POSITIVE 06/24/19 03:37 Antibody Screen NEGATIVE 06/24/19 03:37 Plan Plan of Treatment: Follow up at [facility] in 4 wks or prn. Pelvic rest x 4-6 wks. Time Spent: Less than 30 Minutes
== END 2019-06-26 15:58 | disposition home or self-care (01) | DRG 807 ==
LOC: LR 02:59 → 2S 21:07
PROVIDERS: ADMIT Obstetrics & Gynecology; ATTEND Obstetrics & Gynecology
PROC: 10E0XZZ Delivery of Products of Conception, External Approach (ICD-10-PCS; principal; 2019-06-24)
DX: O48.0 Post-term pregnancy (principal); Z37.0 Single live birth; Z3A.41 41 weeks gestation of pregnancy; O69.81X0 Labor and delivery complicated by cord around neck, without compression, not applicable or unspecified; O69.3XX0 Labor and delivery complicated by short cord, not applicable or unspecified; O77.0 Labor and delivery complicated by meconium in amniotic fluid; O32.6XX0 Maternal care for compound presentation, not applicable or unspecified
CPT/HCPCS: 36415; 80307; 81005; 85025; 85027; 86592; 86850; 86900; 86901; 94760; J2370; J2590; J3010; J3490

== ENCOUNTER 2019-07-09 02:45 | Observation (INO) | payer BC ==
[2019-07-09 03:37] LABS: ABSOLUTE BASOPHILS # (AUTO) 0.1 10^3/uL (0.0-0.2); ABSOLUTE EOSINOPHILS # (AUTO) 0.2 10^3/uL (0.0-0.6); ABSOLUTE LYMPHOCYTES (AUTO) 1.6 10^3/uL (0.5-4.7); ABSOLUTE MONOCYTES (AUTO) 0.6 10^3/uL (0.1-1.4); ABSOLUTE NEUT (AUTO) 7.2 10^3/uL (1.7-8.2); EOSINOPHILS % (AUTO) 1.7 % (0-6); HEMATOCRIT 43.9 % (36.0-47.0); LYMPHOCYTES % (AUTO) 16.3 % (13-45); MEAN CORPUSCULAR HEMOGLOBIN 30.4 pg (27.0-33.4); MEAN CORPUSCULAR HGB CONC 34.2 g/dL (32.0-36.0); MEAN CORPUSCULAR VOLUME 89 fl (80-97); MONOCYTES % (AUTO) 6.1 % (3-13); PLATELET COUNT 461 10^3/uL (150-450); RED BLOOD COUNT 4.93 10^6/uL (3.72-5.28); RED CELL DISTRIBUTION WIDTH 13.2 % (11.5-14.0); SEGMENTED NEUTROPHILS % (AUTO) 74.9 % (42-78); TOTAL CELLS COUNTED % (AUTO) 100 %; WHITE BLOOD COUNT 9.6 10^3/uL (4.0-10.5)
[2019-07-09] MEDS ORDERED: ONDANSETRON HCL INJ/PF 4 MG/2 ML SDV IV ONE (03:54)
[2019-07-09] MEDS ORDERED: MORPHINE SULFATE 10 MG/ML INJ IV ONE (03:54)
[2019-07-09] MEDS ORDERED: NORMAL SALINE 1000 ML 1,000 ML IV ONE (03:54)
[2019-07-09 03:55] LABS: ALBUMIN 4.4 g/dL (3.5-5.0); ALKALINE PHOSPHATASE 286 U/L (38-126); ANION GAP 12 (5-19); ASPARTATE AMINO TRANSFERASE 124 U/L (14-36); BILIRUBIN,DIRECT 0.1 mg/dL (0.0-0.4); BILIRUBIN,TOTAL 0.9 mg/dL (0.2-1.3); BLOOD UREA NITROGEN 12 mg/dL (7-20); CALCIUM 10.2 mg/dL (8.4-10.2); CARBON DIOXIDE 27 mmol/L (22-30); CHLORIDE 101 mmol/L (98-107); GLUCOSE 106 mg/dL (75-110); POTASSIUM 4.7 mmol/L (3.6-5.0); TOTAL PROTEIN 8.1 g/dL (6.3-8.2)
[2019-07-09 04:02] LABS: APPEARANCE,URINE CLOUDY; BILIRUBIN,URINE NEGATIVE (NEGATIVE); COLOR,URINE YELLOW; GLUCOSE, URINE NEGATIVE (NEGATIVE); KETONES,URINE NEGATIVE (NEGATIVE); LEUKOCYTE ESTERASE,URINE LARGE (NEGATIVE); NITRITE,URINE NEGATIVE (NEGATIVE); PROTEIN,URINE 30 mg/dL (NEGATIVE); URINE SPECIFIC GRAVITY 1.021
--- NOTE | 2019-07-09 05:22 | RADIOLOGY REPORT (SQ) ---
Ultrasound of the right upper quadrant of the abdomen: 07/09/2019 4:19 AM GLOBAL [employer]IMATE CHANGE RESEARCHER Technique: Multiple rossi scale color Doppler images of the right upper quadrant of the abdomen were obtained. Comparison: None available History: 24-year old patient with right upper quadrant abdominal pain. Findings: The visualized portions of the hepatic parenchyma appears diffusely echogenic. There is no evidence to suggest intra or extrahepatic ductal dilatation. There is normal direction of flow seen in the main portal vein. Cholelithiasis is seen. No significant gallbladder wall thickening is apparent. Sonographic Florse's sign was negative. The common duct measures 10-11 mm. There are echogenic foci within the common duct concerning for choledocholithiasis. The right kidney measures up to 11.2 cm in length. The right kidney demonstrates increased cortical echogenicity with no evidence to suggest hydronephrosis. The right kidney also demonstrates some cortical thinning. The visualized portions of the IVC, abdominal aorta, and pancreatic head appear normal. No free intraperitoneal fluid is seen. Impression: Cholelithiasis is seen. The common duct is enlarged. There are echogenic foci within the common duct, concerning for choledocholithiasis.
--- NOTE | 2019-07-09 06:41 | ER Document Report ---
ED GI/ - General Chief Complaint: Nausea/Vomiting Stated Complaint: POSSIBLE GALLBLADDER ISSUE Time Seen by Provider: 07/09/19 03:48 Notes: Patient is a 24-year-old female that comes to the emergency department for chief complaint of sharp pain in the upper abdomen mainly on the right side. She states pain comes in waves and is worsened. She states she has had this several times over the past 5 days but this is the worst. She states she vomited 6 times today. Last meal was 7 PM. She denies fever, flank pain, lower abdominal pain, chest pain. She states she was seen by Dr. Wisdom at [facility] but had not yet been scheduled for cholecystectomy. She states this is been delayed because of her recent and delivery. She states she is partially bottlefeeding and partially breast-feeding. She denies any daily medications except vitamins. TRAVEL OUTSIDE OF THE [place] IN LAST 30 DAYS: No - Related Data Allergies/Adverse Reactions: No Known Allergies Allergy (Verified 05/06/19 16:44) Home Medications: prenatals Past Medical History - General Information source: Patient - Social History Smoking Status: Never Smoker Chew tobacco use (# tins/day): No Frequency of alcohol use: None Drug Abuse: None Lives with: Family Family History: Reviewed & Not Pertinent Patient has suicidal ideation: No Patient has homicidal ideation: No Surgical Hx: Negative - Immunizations Immunizations up to date: Yes Hx Diphtheria, Pertussis, Tetanus Vaccination: Yes Review of Systems - Review of Systems Constitutional: No symptoms reported EENT: No symptoms reported Cardiovascular: No symptoms reported Respiratory: No symptoms reported Gastrointestinal: See HPI Genitourinary: No symptoms reported Female Genitourinary: No symptoms reported Musculoskeletal: No symptoms reported Skin: No symptoms reported Hematologic/Lymphatic: No symptoms reported Neurological/Psychological: No symptoms reported Physical Exam - Vital signs Vitals: Temp Pulse Resp BP Pulse Ox 97.3 F 71 18 150/83 H 100 07/09/19 03:03 07/09/19 03:03 07/09/19 03:03 07/09/19 03:03 07/09/19 03:03 - Notes Notes: GENERAL: Patient appears uncomfortable but is not in severe distress HEAD: Normocephalic, atraumatic. EYES: Pupils equal, round, and reactive to light. Extraocular movements intact. ENT: Oral mucosa moist, tongue midline. Oropharynx unremarkable. Airway patent. NECK: Full range of motion. Supple. Trachea midline. LUNGS: Clear to auscultation bilaterally, no wheezes, rales, or rhonchi. No respiratory distress. HEART: Regular rate and rhythm. No murmur ABDOMEN: Marked right upper quadrant pain, mild pain in the epigastric area, lower abdomen is complete benign. Positive Flores sign but otherwise unremarkable abdominal exam. Bowel sounds present. GENITOURINARY: Deferred EXTREMITIES: Moves all 4 extremities spontaneously. No edema, normal radial and dorsalis pedis pulses bilaterally. No cyanosis. BACK: no cervical, thoracic, lumbar midline tenderness. No saddle anesthesia, normal distal neurovascular exam. Moves all extremities in full range of motion. NEUROLOGICAL: Alert and oriented x3. Normal speech. Cranial nerves II through XII grossly intact. PSYCH: Normal affect, normal mood. SKIN: Warm, dry, normal turgor. No rashes or lesions noted. Course - Re-evaluation Re-evalutation: Patient's exam is concerning for gallbladder pathology especially given patient's previous gallstones. Vital signs unremarkable, no fever. After nausea and pain medication patient significantly improved on reevaluation. She will be kept n.p.o. CBC unremarkable. Chemistry shows borderline LFTs but no elevation of bilirubin. Normal lipase. No overt obstructive findings. Ultrasound showing cholelithiasis. There is some dilation and shadowing sugg esting choledocholithiasis. Discussed with patient. Because patient does not have overt obstructive findings on labs will discuss with general surgery on- call. We do have gastroenterology call center operations manager as well. I discussed with Dr. West, general surgeon, he states he will evaluate the patient. 07/09/[address] West evaluated the patient, states that patient will be admitted to the surgical service. Patient states agreement with plan. - Vital Signs Vital signs: Temp Pulse Resp BP Pulse Ox 98.1 F 66 16 97/56 L 98 07/09/19 07:31 07/09/19 07:31 07/09/19 07:31 07/09/19 07:31 07/09/19 07:31 - Laboratory Result Diagrams: 07/09/19 03:24 07/09/19 03:24 Laboratory results interpreted by me: 07/09/19 07/09/19 07/09/19 03:24 03:24 03:24 Plt Count 461 H AST 124 H Alkaline Phosphatase 286 H Urine Protein 30 H Urine Urobilinogen 2.0 H Ur Leukocyte Esterase LARGE H Discharge - Discharge Clinical Impression: RUQ pain Cholelithiasis Qualifiers: Cholelithiasis location: gallbladder Cholecystitis presence: without cholecystitis Biliary obstruction: without biliary obstruction Qualified Code(s): K80.20 - Calculus of gallbladder without cholecystitis without obstruction Vomiting Qualifiers: Vomiting type: unspecified Vomiting Intractability: non-intractable Nausea presence: with nausea Qualified Code(s): R11.2 - Nausea with vomiting, unspecified Condition: Stable Disposition: ADMITTED OBSERVATION Admitting Provider: Surgicalist Unit Admitted: Surgical Floor
--- NOTE | 2019-07-09 06:50 | PDOC H&P ---
History of Present Illness Patient complains of: Abdominal pain History of Present Illness: IRWIN MATHEWS is a 24 year old female Presents emergency department via ground rescue complaining of abdominal pain nausea and anorexia. She has had similar episodes over the last 4 months. She was previously diagnosed with cholelithiasis by outpatient ultrasonography during her third trimester . She saw Dr. Luciano Wisdom at [facility] who recommended she undergo cholecystectomy after her . Delivered on 06/24/2019, vaginally, uneventfully. Is now back in the emergency department with biliary colic. Gallbladder ultrasound shows gallstones, as well as a common bile duct of 1011 mm, with suggestion of choledocholithiasis. Surgery was consulted, and decision made for admission for ERCP followed by laparoscopic cholecystectomy. Past Medical History Medical History: None Past Surgical History Past Surgical History: Removal of third nipple, root canal Social History Information Source: Patient Smoking Status: Never Smoker Electronic Cigarette use?: No Frequency of Alcohol Use: None Hx Recreational Drug Use: No Past Social History Note: She is originally from [facility]. Family History Family History: Reviewed & Not Pertinent, Other - Gallbladder disease in her mother Parental Family History Reviewed: Yes Children Family History Reviewed: Yes Sibling(s) Family History Reviewed.: Yes Medication/Allergy Home Medications: Vit No.130/Iron/Folic [ Tablet] 1 each PO DAILY 04/12/19 Allergies/Adverse Reactions: No Known Allergies Allergy (Verified 05/06/19 16:44) Review of Systems Constitutional: PRESENT: as per HPI Eyes: ABSENT: visual disturbances Ears: ABSENT: hearing changes Cardiovascular: ABSENT: chest pain, dyspnea on exertion, edema, orthropnea, palpitations Respiratory: ABSENT: cough, hemoptysis Gastrointestinal: PRESENT: as per HPI, other - Patient denies change in bowel habits Genitourinary: PRESENT: other - Patient reports urine has been dark orange- colored, however she has been on vitamins Musculoskeletal: ABSENT: joint swelling Integumentary: ABSENT: rash, wounds Neurological: ABSENT: abnormal gait, abnormal speech, confusion, dizziness, focal weakness, syncope Endocrine: ABSENT: cold intolerance, heat intolerance, polydipsia, polyuria Hematologic/Lymphatic: ABSENT: easy bleeding, easy bruising Physical Exam Vital Signs: Temp Pulse Resp BP Pulse Ox 98 F 66 18 115/63 100 07/09/19 06:13 07/09/19 06:13 07/09/19 06:13 07/09/19 06:13 07/09/19 06:13 Intake & Output 07/07/19 07/08/19 07/09/19 06:59 06:59 06:59 Weight 102.9 kg General appearance: PRESENT: no acute distress Head exam: PRESENT: normocephalic Eye exam: PRESENT: EOMI Mouth exam: PRESENT: dry mucosa Neck exam: ABSENT: full ROM Respiratory exam: PRESENT: clear to auscultation cindi Cardiovascular exam: PRESENT: RRR Pulses: PRESENT: normal carotid pulses, normal radial pulses, normal femoral pulses GI/Abdominal exam: PRESENT: other - There is tenderness in the right upper quadrant to mild to moderate palpation Rectal exam: PRESENT: deferred Extremities exam: PRESENT: full ROM Musculoskeletal exam: PRESENT: full ROM Neurological exam: PRESENT: oriented to person, oriented to place, oriented to time, oriented to situation Psychiatric exam: PRESENT: appropriate affect Results Laboratory Results: 07/09/19 03:24 07/09/19 03:24 07/09/19 07/09/19 07/09/19 03:24 03:24 03:24 WBC 9.6 RBC 4.93 Hgb 15.0 Hct 43.9 MCV 89 MCH 30.4 MCHC 34.2 RDW 13.2 Plt Count 461 H Seg Neutrophils % 74.9 Sodium 139.8 Potassium 4.7 Chloride 101 Carbon Dioxide 27 Anion Gap 12 BUN 12 Creatinine 0.85 Est GFR ( Amer) > 60 Glucose 106 Calcium 10.2 Total Bilirubin 0.9 AST 124 H Alkaline Phosphatase 286 H Total Protein 8.1 Albumin 4.4 Lipase 99.5 Urine Color YELLOW Urine Appearance CLOUDY Urine pH 7.0 Ur Specific Straug[place] 1.021 Urine Protein 30 H Urine Glucose (UA) NEGATIVE Urine Ketones NEGATIVE Urine Blood NEGATIVE Urine Nitrite NEGATIVE Ur Leukocyte Esterase LARGE H Urine WBC (Auto) 36 Urine RBC (Auto) 8 Assessment & Plan - Diagnosis (1) Cholelithiasis Qualifiers: Cholelithiasis location: gallbladder Cholecystitis presence: without cholecystitis Biliary obstruction: without biliary obstruction Qualified Code(s): K80.20 - Calculus of gallbladder without cholecystitis without obstruction Is this a current diagnosis for this admission?: Yes Plan: Impression: Symptomatic cholelithiasis with cholecystitis in obese 24-year-old female, 2 weeks . Ultrasonographic findings suggestive of choledocholithiasis. Recommendations: 1. Keep n.p.o. on IV fluids 2. We will consult to Dr. Magdaleno Dyson for preoperative ERCP, common duct stone removal. Anticipate following this with a laparoscopic, possible open cholecystectomy. 3. The above discussed with patient. She expressed understanding and agrees to proceed. (2) Choledocholithiasis Is this a current diagnosis for this admission?: Yes (3) RUQ pain Is this a current diagnosis for this admission?: Yes (4) Obesity (BMI 30-39.9) Is this a current diagnosis for this admission?: Yes - Time Time Spent: 30 to 50 Minutes Medications reviewed and adjusted accordingly: Yes Anticipated discharge: Home - Inpatient Certification Based on my medical assessment, after consideration of the patient's comorbidities, presenting symptoms, or acuity I expect that the services needed warrant INPATIENT care.: Yes I certify that my determination is in accordance with my understanding of Medicare's requirements for reasonable and necessary INPATIENT services [42 CFR 412.3e].: Yes Medical Necessity: Need For IV Fluids, Need for IV Antibiotics, Need for Surgery
[2019-07-09] MEDS: NORMAL SALINE 1000 ML 1,000 ML IV PRN ×2 (06:51→19:54)
[2019-07-09] MEDS ORDERED: CEFAZOLIN 1 GM/D5W RTU 50 ML IV SCH (07:15)
[2019-07-09] MEDS: CEFAZOLIN SODIUM 1 GM in DEXTROSE 5%-WATER 50 ML IV SCH ×2 (09:02→14:41)
[2019-07-09] MEDS: RINGERS SOLUTION,LACTATED 1,000 ML IV PRN (16:34)
[2019-07-09] MEDS: LEVOFLOXACIN 500 MG/D5W RTU 500 MG/100 ML RTUPB IV SCH (19:54)
[2019-07-09] MEDS ORDERED: LEVOFLOXACIN 500 MG/D5W RTU 500 MG/100 ML RTUPB IV ONE (20:00)
[2019-07-09] MEDS: METRONIDAZOLE 500 MG/NS RTU 500 MG/100 ML RTUPB IV SCH (22:06)
[2019-07-10] MEDS ORDERED: METRONIDAZOLE 500 MG/NS RTU 500 MG/100 ML RTUPB IV SCH
[2019-07-10] MEDS: METRONIDAZOLE 500 MG/NS RTU 500 MG/100 ML RTUPB IV SCH ×3 (05:10→22:36)
[2019-07-10] MEDS: NORMAL SALINE 1000 ML 1,000 ML IV PRN (05:15)
[2019-07-10 06:53] LABS: ABSOLUTE BASOPHILS # (AUTO) 0.1 10^3/uL (0.0-0.2); ABSOLUTE EOSINOPHILS # (AUTO) 0.2 10^3/uL (0.0-0.6); ABSOLUTE LYMPHOCYTES (AUTO) 1.5 10^3/uL (0.5-4.7); ABSOLUTE MONOCYTES (AUTO) 0.4 10^3/uL (0.1-1.4); ABSOLUTE NEUT (AUTO) 1.9 10^3/uL (1.7-8.2); BASOPHILS % (AUTO) 1.7 % (0-2); EOSINOPHILS % (AUTO) 4.7 % (0-6); HEMATOCRIT 38.3 % (36.0-47.0); LYMPHOCYTES % (AUTO) 36.4 % (13-45); MEAN CORPUSCULAR HEMOGLOBIN 30.3 pg (27.0-33.4); MEAN CORPUSCULAR HGB CONC 33.8 g/dL (32.0-36.0); MEAN CORPUSCULAR VOLUME 90 fl (80-97); MONOCYTES % (AUTO) 9.9 % (3-13); PLATELET COUNT 340 10^3/uL (150-450); RED BLOOD COUNT 4.27 10^6/uL (3.72-5.28); RED CELL DISTRIBUTION WIDTH 12.8 % (11.5-14.0); SEGMENTED NEUTROPHILS % (AUTO) 47.3 % (42-78); TOTAL CELLS COUNTED % (AUTO) 100 %; WHITE BLOOD COUNT 4.1 10^3/uL (4.0-10.5)
[2019-07-10 06:57] LABS: INTERNATIONAL RATION (INR) 0.96; PARTIAL THROMBOPLASTIN TIME 30.3 SEC (23.5-35.8); PROTHROMBIN TIME 12.8 SEC (11.4-15.4)
[2019-07-10 07:13] LABS: ANION GAP 8 (5-19); BLOOD UREA NITROGEN 8 mg/dL (7-20); CALCIUM 9.7 mg/dL (8.4-10.2); CARBON DIOXIDE 28 mmol/L (22-30); CHLORIDE 104 mmol/L (98-107); GLUCOSE 88 mg/dL (75-110); POTASSIUM 4.6 mmol/L (3.6-5.0)
--- NOTE | 2019-07-10 15:31 | PDOC PROGRESS REPORT ---
Subjective Progress Note for:: 07/10/19 Subjective:: This is a 24-year-old female with choledocholithiasis. The patient is doing reasonably well today. She denies fevers, chills, nausea, vomiting, jaundice, significant abdominal pain, melena, hematochezia, hematemesis, blurry vision, dizziness, orthostasis. Reason For Visit: CHOLELITHIASIS WITH CHOLEDOCHOLITHIASIS Physical Exam Vital Signs: Temp Pulse Resp BP Pulse Ox 98.1 F 71 15 116/69 99 07/10/19 11:16 07/10/19 11:16 07/10/19 11:16 07/10/19 11:16 07/10/19 11:16 Intake & Output 07/09/19 07/10/19 07/11/19 06:59 06:59 06:59 Intake Total 1000 2300 Balance 1000 2300 Weight 102.9 kg 102.8 kg General appearance: PRESENT: no acute distress, cooperative, obese Eye exam: PRESENT: EOMI, PERRLA. ABSENT: scleral icterus Mouth exam: PRESENT: moist, neck supple Neck exam: ABSENT: meningismus, thyromegaly, tracheal deviation, tracheostomy Respiratory exam: PRESENT: unlabored. ABSENT: stridor, tachypnea Cardiovascular exam: ABSENT: tachycardia GI/Abdominal exam: PRESENT: soft. ABSENT: Flores's sign, rebound, rigid Rectal exam: PRESENT: deferred Extremities exam: ABSENT: clubbing Musculoskeletal exam: ABSENT: deformity Neurological exam: PRESENT: alert, awake, oriented to person, oriented to place, oriented to time, oriented to situation, CN II-XII grossly intact Psychiatric exam: ABSENT: agitated, anxious, depressed Skin exam: ABSENT: cyanosis, erythema, jaundice Results Laboratory Results: 07/10/19 06:43 07/10/19 06:43 07/10/19 07/10/19 06:43 06:43 WBC 4.1 RBC 4.27 Hgb 13.0 Hct 38.3 MCV 90 MCH 30.3 MCHC 33.8 RDW 12.8 Plt Count 340 Seg Neutrophils % 47.3 Sodium 140.2 Potassium 4.6 Chloride 104 Carbon Dioxide 28 Anion Gap 8 BUN 8 Creatinine 0.86 Est GFR ( Amer) > 60 Glucose 88 Calcium 9.7 07/09/19 03:24 Clean Catch Midstream Urine Culture - Final Mixed Urogenital Lluvia Assessment & Plan - Diagnosis (1) Choledocholithiasis Is this a current diagnosis for this admission?: Yes - Time Time Spent with patient: Less than 15 minutes - Plan Summary Plan Summary: This is a 24-year-old female with choledocholithiasis. The plan is for ERCP this afternoon. I will keep the patient n.p.o. after midnight, and plan to perform laparoscopic cholecystectomy tomorrow. This has been discussed with the patient, and she is in agreement with the treatment plan.
[2019-07-10] MEDS ORDERED: LIDOCAINE 2% INJ-PF (20 MG/ML) 10 ML AMPUL ONE (17:28)
[2019-07-10] MEDS ORDERED: FENTANYL CITRATE INJ/PF 100 MCG/2 ML AMPUL ONE (17:29)
[2019-07-10] MEDS ORDERED: PROPOFOL INJ 200 MG/20 ML VIAL IV ONE (17:29)
[2019-07-10] MEDS ORDERED: DEXAMETHASONE SOD PHOSPHATE INJ 4 MG/1 ML VIAL ONE (17:29)
[2019-07-10] MEDS ORDERED: ONDANSETRON HCL INJ/PF 4 MG/2 ML SDV ONE (17:29)
[2019-07-10] MEDS ORDERED: MIDAZOLAM 2 MG/2 ML INJ ONE (17:29)
[2019-07-10] MEDS ORDERED: DIPHENHYDRAMINE HCL 50 MG/ML VIAL IV PRN (18:12)
[2019-07-10] MEDS ORDERED: FENTANYL CITRATE INJ/PF 100 MCG/2 ML AMPUL IV PRN ×3 (18:12)
[2019-07-10] MEDS ORDERED: MEPERIDINE HCL/PF INJ 25 MG/1 ML DISP.SYRIN IV PRN (18:12)
[2019-07-10] MEDS ORDERED: ONDANSETRON HCL INJ/PF 4 MG/2 ML SDV IV PRN (18:12)
[2019-07-10] MEDS ORDERED: PROMETHAZINE HCL INJ 25 MG/1 ML VIAL IV PRN ×2 (18:12)
[2019-07-10] MEDS ORDERED: OXYCODONE-ACETAMINOPHEN 5-325 MG TABLET PO PRN ×2 (18:12)
--- NOTE | 2019-07-10 18:27 | PDOC CONSULTATION ---
Consultation Consult Date: 07/09/19 Provider Consulted: ANKUSH GIVENS History of Present Illness Admission Date/PCP: 07/09/19 06:48 History of Present Illness: IRWIN MATHEWS is a 24 year old female who was admitted yesterday with abdominal pain, gallstones and abnormal LFTs with dilated bile ducts. She has been having recurrent abdominal pain since she was 32 weeks . She had a baby a few weeks ago. She had a more severe attack and 3 episodes within 5 days hence presentation to the emergency room. There is no previous history of liver disease. Her common bile duct was 11 mm on ultrasound. Lipase was normal. Past Medical History Psychiatric Medical History: Denies: Depression Social History Lives with: Family Smoking Status: Never Smoker Electronic Cigarette use?: No Frequency of Alcohol Use: None Hx Recreational Drug Use: No Drugs: None Hx Prescription Drug Abuse: No - Advance Directive Resuscitation Status: Full Code Family History Family History: Reviewed & Not Pertinent Parental Family History Reviewed: No Children Family History Reviewed: NA Sibling(s) Family History Reviewed.: NA Medication/Allergy Home Medications: Vit No.130/Iron/Folic [ Tablet] 1 each PO DAILY 04/12/19 Allergies/Adverse Reactions: No Known Allergies Allergy (Verified 05/06/19 16:44) Review of Systems All systems: reviewed and no additional remarkable complaints except as stated Physical Exam Vital Signs: Temp Pulse Resp BP Pulse Ox 98.3 F 77 16 123/68 99 07/10/19 15:07 07/10/19 15:07 07/10/19 15:07 07/10/19 15:07 07/10/19 15:07 Intake & Output 07/09/19 07/10/19 07/11/19 06:59 06:59 06:59 Intake Total 1000 2300 Balance 1000 2300 Weight 102.9 kg 102.8 kg Exam: General: Patient is alert and looks well. HEENT: There is no pallor or jaundice. PERRLA. Oropharynx normal Respiratory: No chest deformity. No respiratory distress. Chest wall palpi tation was unremarkable. Breath sounds were normal Cardiovascular: Heart sounds 1 and 2 normal with no murmurs. Abdominal: Not distended. Soft and nontender. Liver and spleen not palpable. No ascites demonstrated. Bowel sounds active. Rectal examination was deferred. Extremities: No edema Neurological: Alert and oriented x4. Grossly nonfocal. Normal speech Skin: No significant rash Psychological: Normal affect Results Laboratory Results: 07/10/19 06:43 07/10/19 06:43 07/10/19 07/10/19 06:43 06:43 WBC 4.1 RBC 4.27 Hgb 13.0 Hct 38.3 MCV 90 MCH 30.3 MCHC 33.8 RDW 12.8 Plt Count 340 Seg Neutrophils % 47.3 Sodium 140.2 Potassium 4.6 Chloride 104 Carbon Dioxide 28 Anion Gap 8 BUN 8 Creatinine 0.86 Est GFR ( Amer) > 60 Glucose 88 Calcium 9.7 07/09/19 03:24 Clean Catch Midstream Urine Culture - Final Mixed Urogenital Lluvia Assessment & Plan - Diagnosis (1) Abnormal finding of biliary tract Is this a current diagnosis for this admission?: Yes Plan: Her symptoms, labs and ultrasound findings are suggestive of choledocholithiasis. The need for an ERCP including the risk and benefit was explained to the patient and she is in agreement. (3) Choledocholithiasis Is this a current diagnosis for this admission?: Yes (4) Cholelithiasis Qualifiers: Cholelithiasis location: gallbladder Cholecystitis presence: without cholecystitis Biliary obstruction: without biliary obstruction Qualified Code(s): K80.20 - Calculus of gallbladder without cholecystitis without obstruction Is this a current diagnosis for this admission?: Yes (5) RUQ pain Is this a current diagnosis for this admission?: Yes
--- NOTE | 2019-07-10 18:29 | Operative Report ---
Operative Report DATE OF SURGERY: 07/10/19 Operative Report: Pre-op diagnosis: Abdominal pain, gallstones and dilated common bile duct Post-op diagnosis: Common bile duct sludge Surgery: ERCP with sphincterotomy and balloon sludge extraction Medications: As per anesthesia Tissue removed: Procedure: After informed consent obtained from patient, she was placed under general anesthesia. The ERCP endoscope was then inserted into the esophagus blindly and advanced into the stomach. The duodenum was entered and the ampulla was identified. Using the triple-lumen sphincterotomy catheter the common bile duct was freely cannulated. A cholangiogram was obtained which showed possible filling defect in the distal common bile duct. The common bile duct and intrahepatic ducts did not appear dilated. A good sized sphincterotomy was then performed using the endocut mode. The catheter was removed over the guidewire before a 9-12 mm balloon catheter was inserted. The balloon was inflated to 12 mm in the proximal common bile duct and pulled down the duct. Some sludge was extracted. The duct was swept 2 more times. A balloon occlusion cholangiogram was normal. The pancreatic duct was intentionally not cannulated. Patient tolerated procedure well. Findings Common bile duct: Was not significantly dilated. Small amount of sludge was extracted Intrahepatic ducts: Normal Pancreatic duct: Not cannulated Plan: Proceed with cholecystectomy OPERATION: .
[2019-07-10] MEDS: LEVOFLOXACIN 500 MG/D5W RTU 500 MG/100 ML RTUPB IV SCH (20:30)
[2019-07-10] MEDS: RINGERS SOLUTION,LACTATED 1,000 ML IV PRN (20:31)
[2019-07-11] MEDS: METRONIDAZOLE 500 MG/NS RTU 500 MG/100 ML RTUPB IV SCH ×3 (05:28→23:14)
[2019-07-11] MEDS: RINGERS SOLUTION,LACTATED 1,000 ML IV PRN (07:41)
[2019-07-11] MEDS ORDERED: MIDAZOLAM 2 MG/2 ML INJ ONE (09:27)
[2019-07-11] MEDS ORDERED: ONDANSETRON HCL INJ/PF 4 MG/2 ML SDV ONE (09:27)
[2019-07-11] MEDS ORDERED: FENTANYL CITRATE INJ/PF 100 MCG/2 ML AMPUL ONE ×2 (09:27→13:58)
[2019-07-11] MEDS ORDERED: SUGAMMADEX SODIUM 200 MG/2 ML SDV IV ONE (09:27)
[2019-07-11] MEDS ORDERED: DEXAMETHASONE SOD PHOSPHATE INJ 4 MG/1 ML VIAL ONE (09:27)
[2019-07-11] MEDS ORDERED: PROPOFOL INJ 200 MG/20 ML VIAL IV ONE (09:28)
--- NOTE | 2019-07-11 09:54 | PDOC PROGRESS REPORT ---
Subjective Progress Note for:: 07/11/19 Reason For Visit: CHOLELITHIASIS WITH CHOLEDOCHOLITHIASIS She feels better, no further abdominal pain. Tolerated ERCP sphincterotomy and extraction of sludge last p.m. without difficulty Physical Exam Vital Signs: Temp Pulse Resp BP Pulse Ox 97.7 F 58 L 16 99/52 L 99 07/11/19 07:32 07/11/19 07:32 07/11/19 07:32 07/11/19 07:32 07/11/19 07:32 Intake & Output 07/10/19 07/11/19 07/12/19 06:59 06:59 06:59 Intake Total 3400 3500 Balance 3400 3500 Weight 102.8 kg 106.3 kg General appearance: PRESENT: no acute distress GI/Abdominal exam: PRESENT: other - Soft, nontender no peritoneal signs no rigidity Results Laboratory Results: 07/10/19 06:43 07/10/19 06:43 07/09/19 03:24 Clean Catch Midstream Urine Culture - Final Mixed Urogenital Lluvia Assessment & Plan - Diagnosis (1) Cholelithiasis Qualifiers: Cholelithiasis location: gallbladder Cholecystitis presence: without cholecystitis Biliary obstruction: without biliary obstruction Qualified Code(s): K80.20 - Calculus of gallbladder without cholecystitis without obstruction Is this a current diagnosis for this admission?: Yes Plan: Impression: Symptomatic cholelithiasis, cholecystitis and choledocholithiasis status post ERCP, doing well, no evidence of sepsis Recommendations: 1. We will proceed with laparoscopic, possible open cholecystectomy, later today, general anesthesia; the risk benefits and alternatives of planned procedure explained to the patient including bleeding, infection, bile duct injury, need for drain, and retained common bile duct stone. She expresses her understanding agrees to proceed. (2) Choledocholithiasis Is this a current diagnosis for this admission?: Yes (3) RUQ pain Is this a current diagnosis for this admission?: Yes (4) Obesity (BMI 30-39.9) Is this a current diagnosis for this admission?: Yes - Time Time Spent with patient: 15-24 minutes Smoking Cessation Education: 3 to 10 minutes Medications reviewed and adjusted accordingly: Yes Anticipated discharge: Home
[2019-07-11] MEDS ORDERED: BUPIVACAINE HCL 0.25 % INJ/PF (2.5 MG/1 ML) 30 ML VIAL ONE (11:44)
[2019-07-11] MEDS ORDERED: ONDANSETRON HCL INJ/PF 4 MG/2 ML SDV IV PRN (12:47)
[2019-07-11] MEDS ORDERED: MEPERIDINE HCL/PF INJ 25 MG/1 ML DISP.SYRIN IV PRN (12:47)
[2019-07-11] MEDS ORDERED: MORPHINE SULFATE 10 MG/ML INJ IV PRN (12:47)
[2019-07-11] MEDS ORDERED: PROMETHAZINE HCL INJ 25 MG/1 ML VIAL IV PRN ×2 (12:47)
[2019-07-11] MEDS ORDERED: DIPHENHYDRAMINE HCL 50 MG/ML VIAL IV PRN (12:47)
[2019-07-11] MEDS ORDERED: FENTANYL CITRATE INJ/PF 100 MCG/2 ML AMPUL IV PRN ×3 (12:47)
--- NOTE | 2019-07-11 13:11 | Operative Report ---
Operative Report DATE OF SURGERY: 07/11/19 PREOPERATIVE DIAGNOSIS: 1. Symptomatic cholelithiasis with cholecystitis. 2. Choledocholithiasis status post ERCP POSTOPERATIVE DIAGNOSIS: Same with intra-abdominal adhesions OPERATION: 1. Intraoperative laparoscopic lysis of adhesions. 2. Laparoscopic cholecystectomy SURGEON: TIM MATHEWS ANESTHESIA: GA TISSUE REMOVED OR ALTERED: 1 gallbladder with contents COMPLICATIONS: None ESTIMATED BLOOD LOSS: 15 cc INTRAOPERATIVE FINDINGS: See below PROCEDURE: After obtaining informed consent, the patient was taken to the operating room. General Anesthesia was induced; the arms were extended, and the abdomen was exposed, and prepped and draped in a sterile fashion. Instrumentation was set up for laparoscopic cholecystectomy. Surgical plan and surgical timeout were conducted. A vertical incision was made above the umbilicus, and a verres needle was inserted uneventfully into the peritoneal cavity. Pneumoperitoneum was established. The verres needle was removed and a 5 mm trocar was inserted and a 5 mm flexible laparoscope was inserted. Visualization of the peritoneal cavity confirmed safe uneventful entry. Under direct visualization 3 additional 5 mm ports were established, one in the subxiphoid position and second in the subcostal position. The findings are significant for dense adhesions in the gallbladder, and the transverse colon. These were taken down using combination of sharp and blunt dissection. Graspers were placed on the fundus and the gallbladder. Early on the triangle of Calot was widely opened. We actually ended up taking the gallbladder off of the liver bed from the undersurface of the triangle. The gallbladder was collapsed and elongated. This essentially freed up the gallbladder completely from the liver bed. The gallbladder was suspended by dense adhesions, the cystic artery and the cystic duct. The cystic artery was identified, surrounded with a right angle clamp, clipped twice proximally once distally and divided with scissors. Density lesions were taken down again sharply under excellent visualization until the gallbladder was suspended solely by the cystic duct. Photos were taken. The cystic duct was clipped one time proximally, opened with the scissors and milked of any stones, and clipped the cystic duct clipped proximally 2 times, and completely divided with scissors. Photos were taken again. Graspers were repositioned and the gallbladder was removed uneventfully from the abdominal cavity through the super umbilical port site incision. The specimen was examined, then passed off to pathology for permanent analysis. We returned to the peritoneal cavity check for bleeding, and evidence of bile leak, and there was none. There was some generalized ooze from all of the adhesions taken down on the undersurface of the liver and this was managed with Surgicel application. Photos were taken. We Confirmed satisfactory placement of clips on cystic duct and cystic artery. At this point we felt the operation was complete. The subcutaneous tissue was then anesthetized with quarter percent Marcaine Sponge and needle counts are correct. All ports removed under direct visualization pneumoperitoneum evacuated, and 5 mm port wounds closed with 3-0 Vicryl suture, benzoin and Steri-Strips. The patient was extubated, and taken to the recovery room in stable condition.
[2019-07-11] MEDS ORDERED: KETOROLAC TROMETHAMINE INJ/PF 30 MG/1 ML SDV ONE (13:38)
[2019-07-11] MEDS ORDERED: ACETAMINOPHEN 1,000 MG/100 ML RTUPB IV ONE (13:38)
[2019-07-11] MEDS ORDERED: ROCURONIUM BROMIDE INJ 50 MG/5 ML VIAL IV ONE (14:38)
[2019-07-11] MEDS ORDERED: SUCCINYLCHOLINE CHLORIDE INJ 200 MG/10 ML VIAL ONE (14:38)
[2019-07-11] MEDS ORDERED: OXYCODONE-ACETAMINOPHEN 5-325 MG TABLET ONE (15:06)
[2019-07-11] MEDS ORDERED: OXYCODONE-ACETAMINOPHEN 5-325 MG TABLET PO PRN (15:12)
--- NOTE | 2019-07-11 18:15 | RADIOLOGY REPORT (SQ) ---
EXAM DESCRIPTION: ENDO CATH/BILIARY DUCT; NO CHG FLUORO COMPLETED DATE/TIME: 07/10/2019 6:38 pm REASON FOR STUDY: ERCP COMPARISON: abdominal ultrasound 07/09/2019 FLUOROSCOPY TIME: 2.6 minutes 6 digital fluoroscopic images saved to PACS. TECHNIQUE: Intra-operative images acquired during surgical procedure to evaluate progress. NUMBER OF IMAGES: 6 digital fluoroscopic images LIMITATIONS: None. FINDINGS: Intra procedural imaging and fluoroscopy during ERCP. Contrast injected into the common b ile duct. Subsequent images demonstrate sweeping of the common bile duct with a balloon tipped maira ter. Final image demonstrates no filling defect in the right or left hepatic or common ducts. Reflu x of small amount of contrast into the gallbladder. Please see the operative report for further details IMPRESSION: IMAGE(S) OBTAINED DURING PROCEDURE. COMMENT: Quality ID [id number]: Final reports for procedures using fluoroscopy that document radiation exp osure indices, or exposure time and number of fluorographic images (if radiation exposure indices are not available) Please consult full operative report of the attending physician for description of the procedure. TECHNICAL DOCUMENTATION: JOB ID: [id number] [employer]- All Rights Reserved Reading location - IP/workstation name: [email or web address]
--- NOTE | 2019-07-11 18:15 | RADIOLOGY REPORT (SQ) ---
EXAM DESCRIPTION: ENDO CATH/BILIARY DUCT; NO CHG FLUORO COMPLETED DATE/TIME: 07/10/2019 6:38 pm REASON FOR STUDY: ERCP COMPARISON: abdominal ultrasound 07/09/2019 FLUOROSCOPY TIME: 2.6 minutes 6 digital fluoroscopic images saved to PACS. TECHNIQUE: Intra-operative images acquired during surgical procedure to evaluate progress. NUMBER OF IMAGES: 6 digital fluoroscopic images LIMITATIONS: None. FINDINGS: Intra procedural imaging and fluoroscopy during ERCP. Contrast injected into the common b ile duct. Subsequent images demonstrate sweeping of the common bile duct with a balloon tipped maira ter. Final image demonstrates no filling defect in the right or left hepatic or common ducts. Reflu x of small amount of contrast into the gallbladder. Please see the operative report for further details IMPRESSION: IMAGE(S) OBTAINED DURING PROCEDURE. COMMENT: Quality ID 145: Final reports for procedures using fluoroscopy that document radiation exp osure indices, or exposure time and number of fluorographic images (if radiation exposure indices are not available) Please consult full operative report of the attending physician for description of the procedure. TECHNICAL DOCUMENTATION: JOB ID: [id number] [employer]- All Rights Reserved Reading location - IP/workstation name: [email or web address]
[2019-07-11] MEDS: LEVOFLOXACIN 500 MG/D5W RTU 500 MG/100 ML RTUPB IV SCH (20:29)
[2019-07-12] MEDS: RINGERS SOLUTION,LACTATED 1,000 ML IV PRN (03:28)
[2019-07-12] MEDS: METRONIDAZOLE 500 MG/NS RTU 500 MG/100 ML RTUPB IV SCH (06:44)
--- NOTE | 2019-07-12 10:23 | PDOC DISCHARGE SUMMARY ---
General - Admit/Disc Date/PCP Admission Date/Primary Care Provider: 07/09/19 06:48 Discharge Date: 07/12/19 - Discharge Diagnosis Final Diagnosis: Choledocholithiasis - Assessment Summary: This is a 24-year-old female admitted to hospital with right upper quadrant pain, nausea, vomiting and evidence of choledocholithiasis on ultrasound. The patient underwent ERCP, which was successful. The following day she underwent laparoscopic cholecystectomy. The patient was taken to the floor afterward in stable condition. The patient today is doing very well. She is ambulating, oskar erating a diet, passing flatus, and has no significant complaints. At this time, it is felt that the patient has reached maximal hospital benefit and is fit for discharge. - Additional Information Resuscitation Status: Full Code Discharge Diet: As Tolerated Discharge Activity: No Lifting Over 10 Pounds, No Lifting/Push/Pulling Prescriptions: Ibuprofen [Ibu] 800 mg PO MEALS #42 tablet Hydrocodone/Acetaminophen [[place] 10-325 mg Tablet] 1 tab PO Q6HP PRN #10 tablet PRN Reason: For Pain Home Medications: Vit No.130/Iron/Folic [ Tablet] 1 each PO DAILY 04/12/19 Hydrocodone/Acetaminophen [[place] 10-325 mg Tablet] 1 tab PO Q6HP PRN #10 tablet 07/12/19 Ibuprofen [Ibu] 800 mg PO MEALS #42 tablet 07/12/19 Additional Information: Discharge home. Diet as tolerated. Activity: No lifting greater than 10 pounds x 2 weeks. Follow-up with [facility] in 7 to 10 days. Okay to shower tomorrow (07/13/2019). No tub baths or swimming pools x2 weeks. [place] 10/325 mg p.o. every 6 hours PRN for pain. Ibuprofen 800 mg p.o. 3 times daily with meals. History of Present Illiness History of Present Illness: IRWIN MATHEWS is a 24 year old female Physical Exam Vital Signs: Temp Pulse Resp BP Pulse Ox 97.7 F 61 18 113/61 100 07/12/19 07:31 07/12/19 07:31 07/12/19 07:31 07/12/19 07:31 07/12/19 07:31 Intake & Output 07/11/19 07/12/19 07/13/19 06:59 06:59 06:59 Intake Total 3500 2410 100 Output Total 5 Balance 3500 2405 100 Weight 106.3 kg 104.3 kg Results Laboratory Results: WBC 4.1 10^3/uL (4.0-10.5) 07/10/19 06:43 RBC 4.27 10^6/uL (3.72-5.28) 07/10/19 06:43 Hgb 13.0 g/dL (12.0-15.5) 07/10/19 06:43 Hct 38.3 % (36.0-47.0) 07/10/19 06:43 MCV 90 fl (80-97) 07/10/19 06:43 MCH 30.3 pg (27.0-33.4) 07/10/19 06:43 MCHC 33.8 g/dL (32.0-36.0) 07/10/19 06:43 RDW 12.8 % (11.5-14.0) 07/10/19 06:43 Plt Count 340 10^3/uL (150-450) 07/10/19 06:43 Lymph % (Auto) 36.4 % (13-45) 07/10/19 06:43 Chambers % (Auto) 9.9 % (3-13) 07/10/19 06:43 Eos % (Auto) 4.7 % (0-6) 07/10/19 06:43 Baso % (Auto) 1.7 % (0-2) 07/10/19 06:43 Absolute Neuts (auto) 1.9 10^3/uL (1.7-8.2) 07/10/19 06:43 Absolute Lymphs (auto) 1.5 10^3/uL (0.5-4.7) 07/10/19 06:43 Absolute Monos (auto) 0.4 10^3/uL (0.1-1.4) 07/10/19 06:43 Absolute Eos (auto) 0.2 10^3/uL (0.0-0.6) 07/10/19 06:43 Absolute Basos (auto) 0.1 10^3/uL (0.0-0.2) 07/10/19 06:43 Seg Neutrophils % 47.3 % (42-78) 07/10/19 06:43 PT 12.8 SEC (11.4-15.4) 07/10/19 06:43 INR 0.96 07/10/19 06:43 APTT 30.3 SEC (23.5-35.8) 07/10/19 06:43 Sodium 140.2 mmol/L (137-145) 07/10/19 06:43 Potassium 4.6 mmol/L (3.6-5.0) 07/10/19 06:43 Chloride 104 mmol/L (98-107) 07/10/19 06:43 Carbon Dioxide 28 mmol/L (22-30) 07/10/19 06:43 Anion Gap 8 (5-19) 07/10/19 06:43 BUN 8 mg/dL (7-20) 07/10/19 06:43 Creatinine 0.86 mg/dL (0.52-1.25) 07/10/19 06:43 Est GFR ( Amer) > 60 (>60) 07/10/19 06:43 Est GFR (MDRD) Non-Af > 60 (>60) 07/10/19 06:43 Glucose 88 mg/dL (75-110) 07/10/19 06:43 Calcium 9.7 mg/dL (8.4-10.2) 07/10/19 06:43 Total Bilirubin 0.9 mg/dL (0.2-1.3) 07/09/19 03:24 Direct Bilirubin 0.1 mg/dL (0.0-0.4) 07/09/19 03:24 Neonat Total Bilirubin Not Reportable 07/09/19 03:24 Neonat Direct Bilirubin Not Reportable 07/09/19 03:24 Neonat Indirect Bili Not Reportable 07/09/19 03:24 AST 124 U/L (14-36) H 07/09/19 03:24 ALT 133 U/L (<35) 07/09/19 03:24 Alkaline Phosphatase 286 U/L (38-126) H 07/09/19 03:24 Total Protein 8.1 g/dL (6.3-8.2) 07/09/19 03:24 Albumin 4.4 g/dL (3.5-5.0) 07/09/19 03:24 Lipase 99.5 U/L (23-300) 07/09/19 03:24 Urine Color YELLOW 01/22/20 03:24 Urine Appearance CLOUDY 07/09/19 03:24 Urine pH 7.0 (5.0-9.0) 07/09/19 03:24 Ur Specific [place] 1.021 07/09/19 03:24 Urine Protein 30 mg/dL (NEGATIVE) H 07/09/19 03:24 Urine Glucose (UA) NEGATIVE mg/dL (NEGATIVE) 07/09/19 03:24 Urine Ketones NEGATIVE mg/dL (NEGATIVE) 07/09/19 03:24 Urine Blood NEGATIVE (NEGATIVE) 07/09/19 03:24 Urine Nitrite NEGATIVE (NEGATIVE) 07/09/19 03:24 Urine Bilirubin NEGATIVE (NEGATIVE) 07/09/19 03:24 Urine Urobilinogen 2.0 mg/dL (<2.0) H 07/09/19 03:24 Ur Leukocyte Esterase LARGE (NEGATIVE) H 07/09/19 03:24 Urine WBC (Auto) 36 /HPF 07/09/19 03:24 Urine RBC (Auto) 8 /HPF 07/09/19 03:24 Squamous Epi Cells Auto 48 /HPF 07/09/19 03:24 U Non-Squamous Epis Auto 3 /HPF 07/09/19 03:24 Urine Mucus (Auto) FEW /LPF 07/09/19 03:24 Urine Ascorbic Acid NEGATIVE (NEGATIVE) 07/09/19 03:24 Urine HCG, Qual NEGATIVE (NEGATIVE) 07/11/19 08:20 Impressions: Catheter Placement 07/10/19 00:00 IMPRESSION: IMAGE(S) OBTAINED DURING PROCEDURE. Fluoroscopy 07/10/19 00:00
[2019-07-12 11:03] VITALS: BP 107/62
== END 2019-07-12 10:25 | disposition home or self-care (01) ==
LOC: ER 02:45 → EH 06:48 → 2S 08:15
PROVIDERS: ATTEND Surgery
DX: O99.63 Diseases of the digestive system complicating the puerperium (principal); K81.1 Chronic cholecystitis; K82.9 Disease of gallbladder, unspecified; K66.0 Peritoneal adhesions (postprocedural) (postinfection); O99.215 Obesity complicating the puerperium; E66.9 Obesity, unspecified; Z83.79 Family history of other diseases of the digestive system
CPT/HCPCS: 99285; 96361; 96374; 96375; 36415 ×2; 87086; 83690; 85025 ×2; 85610; 85730; 81025 ×2; 80048; 80053; 81001; 88304 ×2; 74328; 76705; 43264; 47562; 44180; G0378 ×5; J2250 ×2; J1956 ×3; J0690; J3490 ×7; J1100 ×2; J3010 ×2; J1885; J2270; J0330; J2405 ×3; J7060; J7030 ×2; J7120 ×4; J2704 ×2; J0131; 732

== ENCOUNTER 2019-08-02 12:47 | Emergency (ER) | payer BC ==
[2019-08-02] MEDS ORDERED: DIPH/PERTUSS(ACELL)/TETANUS VAC/PF 0.5 ML SYR (>=10YO) IM ONE (13:14)
--- NOTE | 2019-08-02 13:15 | ER Document Report ---
ED Medical Screen (RME) - General Chief Complaint: Fall Injury Stated Complaint: FALL/LACERATION TO LEFT PROTESTANT Time Seen by Provider: 08/02/19 13:12 Mode of Arrival: Ambulatory Information source: Patient Notes: ED for laceration to the left side of her face right in front of her ear. She states she tripped over the dog landing on a coffee table cutting her face. There is a laceration that is 3 cm long open not bleeding at this time. Is alert oriented respirations regular unlabored speaking in full sentences. She did just recently have a vaginal delivery on June 24 and a gallbladder removal on via laparoscopy. She is alert oriented she was not dizzy she just tripped over the dog. I have greeted and performed a rapid initial assessment of this patient. A comprehensive ED assessment and evaluation of the patient, analysis of test results and completion of medical decision making process will be conducted by an additional ED providers. TRAVEL OUTSIDE OF THE [place] IN LAST 30 DAYS: No - Related Data Allergies/Adverse Reactions: No Known Allergies Allergy (Verified 08/02/19 13:06) Past Medical History Psychiatric Medical History: Denies: Hx Depression - Immunizations Immunizations up to date: Yes Hx Diphtheria, Pertussis, Tetanus Vaccination: Yes - 2018 Physical Exam - Vital signs Vitals: Temp Pulse Resp BP Pulse Ox 98.1 F 81 18 137/82 H 97 08/02/19 13:03 08/02/19 13:03 08/02/19 13:03 08/02/19 13:03 08/02/19 13:03 Course - Vital Signs Vital signs: Temp Pulse Resp BP Pulse Ox 98.1 F 81 18 137/82 H 97 08/02/19 13:03 08/02/19 13:03 08/02/19 13:03 08/02/19 13:03 08/02/19 13:03
[2019-08-02] MEDS ORDERED: LIDOCAINE 1% INJ (10 MG/ML) 10 ML MDV ONE (15:04)
--- NOTE | 2019-08-02 15:38 | ER Document Report ---
ED General - General Chief Complaint: Laceration Stated Complaint: FALL/LACERATION TO LEFT YAZDANISM Time Seen by Provider: 08/02/19 13:12 Mode of Arrival: Ambulatory Information source: Patient, Relative - and 1 month child and 8 yr child Notes: 24-year-old female arrives by POV with her and children after she tripped over their dog impacting her left TMJ and preauricular area onto a coffee table patient reports she is unable to open her jaw at this time and has a laceration approximately 2.5 cm length with bleeding controlled by pressure denies any LOC any smell changes vision changes headaches neck ache. Patient has a history of multiple fractures and lacerations growing up as a child playing hockey field hockey and softball and just delivered her 1-month-old baby vaginal delivery. Patient reports she" had a tetanus shot in 2017 her having a dog bite on her right hand with rabies shots as it was a stray dog and was not able to be captured." TRAVEL OUTSIDE OF THE [place] IN LAST 30 DAYS: No - HPI Onset: Other - 3 3 hours [employer] Onset/Duration: Sudden Quality of pain: Achy Severity: Mild Pain Level: 1 Associated symptoms: Earache Exacerbated by: Movement Relieved by: Denies Similar symptoms previously: No Recently seen / treated by doctor: No - Related Data Allergies/Adverse Reactions: No Known Allergies Allergy (Verified 08/02/19 13:06) Past Medical History - General Information source: Patient - Social History Smoking Status: Never Smoker Cigarette use (# per day): No Chew tobacco use (# tins/day): No Smoking Education Provided: No Frequency of alcohol use: None Drug Abuse: None Lives with: Family Family History: Reviewed & Not Pertinent Patient has suicidal ideation: No Patient has homicidal ideation: No Psychiatric Medical History: Denies: Hx Depression - Immunizations Immunizations up to date: Yes Hx Diphtheria, Pertussis, Tetanus Vaccination: Yes - 2018 Review of Systems - Review of Systems Constitutional: No symptoms reported EENT: See HPI, Ear pain - Left preauricular ear pain as well as left jaw pain around TMJ area; aspiration as per HPI Cardiovascular: No symptoms reported Respiratory: No symptoms reported Gastrointestinal: No symptoms reported Genitourinary: No symptoms reported Female Genitourinary: No symptoms reported Musculoskeletal: No symptoms reported Skin: See HPI, Other - Laceration preauricular bleeding controlled pressure dressing Hematologic/Lymphatic: No symptoms reported Neurological/Psychological: No symptoms reported Physical Exam - Vital signs Vitals: Temp Pulse Resp BP Pulse Ox 98.1 F 81 18 137/82 H 97 08/02/19 13:03 08/02/19 13:03 08/02/19 13:03 08/02/19 13:03 08/02/19 13:03 Interpretation: Normal - General General appearance: Alert In distress: None - HEENT Head: Normocephalic, Tenderness, Other - Laceration to left preauricular area 2.5 cm length Eyes: Normal Conjunctiva: Normal Cornea: Normal Extraocular movements intact: Yes Eyelashes: Normal Pupils: PERRL Sinus: Normal Nasal: Normal Mouth/Lips: Normal Pharynx: Normal Neck: Normal - Respiratory Respiratory status: No respiratory distress Chest status: Nontender Breath sounds: Normal Chest palpation: Normal - Cardiovascular Rhythm: Regular Heart sounds: Normal auscultation Murmur: No Friction rub: No José's crunch: No - Abdominal Inspection: Normal Distension: No distension Bowel sounds: Normal Tenderness: Nontender Organomegaly: No organomegaly - Back Back: Normal - Extremities General upper extremity: Normal inspection General lower extremity: Normal inspection - Neurological Neuro grossly intact: Yes Cognition: Normal Orientation: AAOx4 Trisha Coma Scale Eye Opening: Spontaneous Trisha Coma Scale Verbal: Oriented Trisha Coma Scale Motor: Obeys Commands Trisha Coma Scale Total: 15 Speech: Normal Cranial nerves: Normal Cerebellar coordination: Normal Motor strength normal: LUE, RUE, LLE, RLE - Psychological Associated symptoms: Normal affect - Skin Skin Temperature: Warm Skin Moisture: Dry Skin Color: Other - Except for laceration preauricular left side Course - Vital Signs Vital signs: Temp Pulse Resp BP Pulse Ox 98.1 F 81 18 137/82 H 97 08/02/19 13:03 08/02/19 13:03 08/02/19 13:03 08/02/19 13:03 08/02/19 13:03 Procedures - Laceration/Wound Repair Left Face Time completed: 15:40 Wound length (cm): 2.5 Wound's Depth, Shape: Linear Laceration pre-procedure: Sterile PPE donned, Chloraprep applied Anesthetic type: 1% Lidocaine Volume Anesthetic (mLs): 2 Irrigated w/ Saline (mLs): 1 Wound Debrided: Minimal Wound Repaired With: Sutures Suture Size/Type: 4:0, Prolene Number of Sutures: 3 Layer Closure?: No Post-procedure wound care: Other - Dermabond was applied to wound area after sutures Post-procedure NV exam normal: Yes Complications: Yes - Patient required CT of left jaw in order to rule out TMJ fracture Critical Care Note - Critical Care Note Total time excluding time spent on procedures (mins): 90 Discharge - Discharge Clinical Impression: Laceration, Suture of skin wound Fall Qualifiers: Encounter type: initial encounter Qualified Code(s): W19.XXXA - Unspecified fall, initial encounter Condition: Good Disposition: HOME, SELF-CARE Additional Instructions: Keep wound clean and dry and may bathe after 24 hours. Pat dry. Return to ER if sutures or wound become inflamed or infected. Take antibiotics as directed. Also sutures out in 5 days.. Definitely do not leave in longer than 7 days. Prescriptions: Ibuprofen [Ibu] 800 mg PO BID #20 tablet Cephalexin Monohydrate [Keflex 500 mg Capsule] 500 mg PO BID 5 Days #14 capsule
--- NOTE | 2019-08-02 16:13 | RADIOLOGY REPORT (SQ) ---
EXAM DESCRIPTION: CT HEAD WITHOUT COMPLETED DATE/TIME: 08/02/2019 4:03 pm REASON FOR STUDY: fall head injury COMPARISON: None. TECHNIQUE: Axial images acquired through the brain without intravenous contrast. Images reviewed wit h bone, brain and subdural windows. Images stored on PACS. All CT scanners at this facility use dose modulation, iterative reconstruction, and/or weight based d osing when appropriate to reduce radiation dose to as low as reasonably achievable (ALARA). [facility]: Dose Right [facility]: CareDose [facility]: Dose Right [facility]: Teradose 4D [facility]: [employer] RADIATION DOSE: CT Rad equipment meets quality standard of care and radiation dose reduction techniq ues were employed. CTDIvol: 30.4 - 53.2 mGy. DLP: 1572 mGy-cm.. LIMITATIONS: None. FINDINGS: VENTRICLES: Normal size and contour. CEREBRUM: No masses. No hemorrhage. No midline shift. Age appropriate white matter. No evidence for a cute infarction. CEREBELLUM: No masses. No hemorrhage. No alteration of density. No evidence for acute infarction. EXTRA-AXIAL SPACES: No fluid collections. ORBITS AND GLOBE: No intra- or extraconal masses. Normal contour of globe without masses. CALVARIUM: No fracture. PARANASAL SINUSES: No fluid or mucosal thickening. SOFT TISSUES: No mass or hematoma. OTHER: No other significant finding. IMPRESSION: NO ACUTE INTRACRANIAL FINDINGS. EVIDENCE OF ACUTE STROKE: NO. TECHNICAL DOCUMENTATION: JOB ID: [id number] [place]-72 Quality ID # [id number]: Final reports with documentation of one or more dose reduction techniques (e.g., Au tomated exposure control, adjustment of the mA and/or kV according to patient size, use of iterative reconstruction technique) 2010 [employer]- All Rights Reserved Reading location - IP/workstation name: [employer]
--- NOTE | 2019-08-02 16:17 | RADIOLOGY REPORT (SQ) ---
EXAM DESCRIPTION: CT FACIAL AREA WITHOUT COMPLETED DATE/TIME: 08/02/2019 4:03 pm REASON FOR STUDY: fall with lac left tmj with pain /dec movement COMPARISON: None. TECHNIQUE: Noncontrasted images through the facial bones and orbits windowed for bone and soft tissu e. Additional coronal and sagittal reconstructed images reviewed. All images stored on PACS. All CT scanners at this facility use dose modulation, iterative reconstruction, and/or weight based d osing when appropriate to reduce radiation dose to as low as reasonably achievable (ALARA). [facility]: Dose Right [facility]: CareDose [facility]: Dose Right [facility]: Teradose 4D [facility]: [employer] RADIATION DOSE: mGy. LIMITATIONS: None. FINDINGS: FACIAL BONES: No fracture or bone lesion. ORBITS: Intact. No fracture. Symmetric intact globes and retroorbital soft tissues. PARANASAL SINUSES: Clear. No significant mucosal thickening, mass or fluid. No nasal polyps. Maxill lianne sinus outlets are patent. SOFT TISSUES: No mass or edema. INFERIOR BRAIN: Limited view. No acute findings. OTHER: No other significant finding. IMPRESSION: NO ACUTE FINDINGS. TECHNICAL DOCUMENTATION: JOB ID: [id number] [place]-72 Quality ID # [id number]: Final reports with documentation of one or more dose reduction techniques (e.g., Au tomated exposure control, adjustment of the mA and/or kV according to patient size, use of iterative reconstruction technique) 2010 [employer]- All Rights Reserved Reading location - IP/workstation name: [email or web address]
[2019-08-02 16:34] VITALS: BP 126/71
== END 2019-08-02 16:34 | disposition home or self-care (01) ==
LOC: ER 12:47
DX: O9A.23 Injury, poisoning and certain other consequences of external causes complicating the puerperium (principal); S01.81XA Laceration without foreign body of other part of head, initial encounter; R68.84 Jaw pain; W01.190A Fall on same level from slipping, tripping and stumbling with subsequent striking against furniture, initial encounter
CPT/HCPCS: 70450; 70486; 99285